=== PATIENT | male | born 1940 | race Caucasian/White ===

== ENCOUNTER → 2017-10-04 | Outpatient (CLI) | payer MEDICARE, BC ==
[~2017-10-04] MED LIST: ACTOS15 MG PO; ADULT LOW DOSE81 MG; AMARYL4 MG PO; ASPIR 8181 MG PO; COUMADIN 5 MG TA5 M1; COZAAR 25 MG TA25 M1 PO; EFFIENT10 MG PO; FLEXERIL PO; FLOMAX0.4 MG PO; FLONASE; FLONASE 0.05%50 MCG NASAL; FLONASE INH; GLUCOPHAGE500 MG PO; GLYBURIDE 5 MG T5 M1 PO; HYDROCODON-ACE1 EAC7; HYDROCODONE-AP1 EAC6 PO; IBUPROFEN 800800 M1 PO; JANUVIA50 MG PO; KEFLEX500 MG; KLOR-CON 1010 MEQ PO; LASIX 20 MG TAB20 MG PO; LEVALBUTER1.25 MG/0. INH; LEVAQUIN 500 M500 M2 PO; NORCO 5-325 TA1 EACH; NORCO 5-325 TA1 EACH PO; NOVOLIN N100 UNIT/3 SUBQ; OXYIR5 MG; PERCOCET 5-3251 EACH; PREDNISONE 10 M10 MG PO; PROTONIX40 M1 PO; REGLAN 10 MG TA10 MG PO; TRESIBA FL100 UNIT/1 SUBQ; ZOCOR PO; ZOCOR20 MG PO
== END ==
LOC: M.MRI 12:48
DX: M79.644 Pain in right finger(s) (principal)

== ENCOUNTER 2018-03-11 07:43 | Observation (INO) | payer MEDICARE, BC ==
[~2018-03-11] VITALS: Ht 180.3 cm; Wt 103.0 kg
[2018-03-11] VITALS (15 sets, daily range): BP systolic 87–1440; BP diastolic 59–83
--- NOTE | ~2018-03-11 | H ---
[address] [address] HISTORY AND PHYSICAL Name: GUERA WILLSON Room: [address] [place]#: [id number] Admission: 03/11/18 Attend Phys: Gui Howard MD Discharge: 03/12/18 Date of : 44 Report #: [id number] THIS REPORT FOR: //name// Please refer to the History and Physical performed in the physician's office. By: [id number] Records Staff NATALY /TORITO
[~2018-03-11 07:43] MED LIST changes: -ASPIR 8181 MG PO; -COZAAR 25 MG TA25 M1 PO; -EFFIENT10 MG PO; -KLOR-CON 1010 MEQ PO; -LASIX 20 MG TAB20 MG PO; -TRESIBA FL100 UNIT/1 SUBQ; -ZOCOR20 MG PO
[2018-03-11] MEDS ORDERED: ZOCOR20 MG PO (08:13)
[2018-03-11] MEDS ORDERED: TRESIBA FL100 UNIT/1 SUBQ (08:13)
[2018-03-11] MEDS ORDERED: KLOR-CON 1010 MEQ PO (08:14)
[2018-03-11] MEDS ORDERED: ASPIR 8181 MG PO (08:14)
[2018-03-11] MEDS ORDERED: LASIX 20 MG TAB20 MG PO (08:14)
[2018-03-11] MEDS ORDERED: COZAAR 25 MG TA25 M1 PO (08:14)
[2018-03-11 08:19] LABS: HEMATOCRIT 40.1 % (42.0-52.0); HEMOGLOBIN 13.4 gm/dL (14.0-18.0); MCH 26.6 pg (26.0-34.0); MCHC 33.4 g/dL (28.0-37.0); MCV 79.6 fL (80.0-100.0); MPV 8.3 fl. (7.2-11.1); RBC 5.05 mil/uL (4.50-6.00); RDW-CV 18.5 % (10.5-14.5); WBC 7.8 thou/uL (4.0-11.0)
[2018-03-11 08:29] LABS: APTT 25.2 Seconds (25.0-31.3); INR 1.1; PROTIME 10.6 Seconds (9.20-11.50)
[2018-03-11 08:42] LABS: ANION GAP 6 mmol/L (7-16); BUN 12 mg/dL (7-18); CALCIUM 9.5 mg/dL (8.5-10.1); CHLORIDE 101 mmol/L (98-107); CO2 28 mmol/L (21-32); CREATININE 0.8 mg/dL (0.6-1.3); GLUCOSE 192 mg/dL (70-99); POTASSIUM 4.3 mmol/L (3.5-5.1); SODIUM 135 mmol/L (136-145)
[2018-03-11 08:43] LABS: ALBUMIN 3.6 g/dL (3.4-5.0); ALKALINE PHOSPHATASE 58 U/L (46-116); CHOLESTEROL 90 mg/dL (<200); HDL CHOLESTEROL 43 mg/dL (>40); LDL CHOLESTEROL 35 mg/dL (<100); SGOT 14 U/L (15-37); SGPT 19 U/L (30-65); TC:HDL 2.1 Ratio (Not establshd); TOTAL BILIRUBIN 0.6 mg/dL (<0.1-1.0); TOTAL PROTEIN 7.8 g/dL (6.4-8.2); TRIGLYCERIDE 64 mg/dL (<150); VLDL 13 mg/dL (<40)
[2018-03-11 08:44] LABS: SERUM ASSESSMENT Clear
--- NOTE | 2018-03-11 09:41 | EKG ---
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
--- NOTE | 2018-03-11 14:17 | NUR ---
RECIEVED REPOST POST CATH FROM EDY DAVIS OF EXPECTED TRANSFER AT 1138-REPORTED TO HAVE RECIEVIED 2 STENTS TO RCA, CATH ACCESS FIRST THROUGH RIGHT WRIST UNSUCESSFUL WITH RADIAL BAND IN PLACE WITH 10 CC, AND THEN ACCESS THROUGH RIGHT GROIN WITH TEGADERM WITH GAUZE IN PLACE- MINIMAL DRAINAGE/BRUISE NOTED WITH NO HEMATOME TO SITES- PT ARRIVED VIA BED TO ROOM 205 AT 1215- COUNSELOR SUPERVISOR PLACED ORDERED, TRACING SR- VS 98.1 18 87/72 72 95% ON RA-POST CATH VS INITIATED WITH CATH SITE CHECKS IN PLACE- BED REST WITH IMMOBILIZATION OF RIGHT LEG IN PLACE- AIR RELEASE IN PLACE TO RADIAL BAND PER ORDERS- DIET INTIATED WITH GOOD PO INTAKE NOTED- PT A&O X4- CONTINENT OF BOWEL AND BLADDER, USING URINAL- LCTA, DIMINISHED IN BASES- OCCASSIONAL C/O DYSPENA NOTED WITH O2 AT 2L PLACED- ABDOMEN SOFT/ROUND/NON-TENDER, BS X4 QUADS- PT REPORTS TO HAVE HAD BM THIS AM- IV NOTED TO RIGHT AC INTACT, IVF INFUSSING PRESCIBED- BRUSING NOTED TO UE, OTHERWISE SKIN C/D/I- REPORTS TO HAVE DENTURES AT HOME, BUT DOES NOT WEAR THEM- GLASSES IN PLACE UPON ADMISSION- BS IN PLACE ORDERED, BS UPON ADMISSION NOTED TO BE 149- CALL LIGHT AND PERSONAL BELONGINGS WITH IN REACH- HOURLY ROUNDS IN PLACE R/T SAFETY/NEEDS- ALL NEEDS MET AT THIS TIME-TM
--- NOTE | 2018-03-11 14:41 | EKG ---
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1940 Requested By: Lucio Kern Order Number: [id number] Reading MD: Gui Howard Measurements Intervals [place] Rate: 67 P: 35 MS: 222 QRS: -7 QRSD: 98 T: 33 QT: 387 QTc: 409 Interpretive Statements Sinus rhythm Atrial premature complex Prolonged MS interval Compared to ECG 03/11/2018 09:17:47 Atrial premature complex(es) now present First degree AV block now present Electronically Signed On 03-11-2018 14:41:20 CDT by Gui Howard [email or web address] <ELECTRONICALLY SIGNED> By: Gui Howard MD, [facility] 03/11/18 1441 1410 1410 Gui Howard MD, [facility] /EPI
[2018-03-12] VITALS: BP 144/65
--- NOTE | 2018-03-12 03:16 | NUR ---
ASSUMED CARE OF PT AT 1900. PT IS ALERT AND ORIENTED. VSS. PERRLA. NO COMPLAINTS OF CHEST PAIN. STEADY GAIT. PT IS UP AD CHAIM. PT IS IN SINUS RYTHM ON THE TELEMERY. PT IS RESTING COMFORTABLY IN BED. RESPIRATIONS ARE EVEN AND NONLABORED. WILL CONTINUE TO MONITOR PT.
[2018-03-12 03:56] VITALS: BP 162/76
[2018-03-12 04:22] LABS: HEMATOCRIT 38.2 % (42.0-52.0); HEMOGLOBIN 12.9 gm/dL (14.0-18.0); MCH 26.6 pg (26.0-34.0); MCHC 33.8 g/dL (28.0-37.0); MCV 78.6 fL (80.0-100.0); MPV 8.1 fl. (7.2-11.1); RBC 4.86 mil/uL (4.50-6.00); RDW-CV 18.1 % (10.5-14.5)
[2018-03-12 04:50] LABS: ALBUMIN 3.3 g/dL (3.4-5.0); ALKALINE PHOSPHATASE 54 U/L (46-116); ANION GAP 6 mmol/L (7-16); BUN 9 mg/dL (7-18); CALCIUM 8.8 mg/dL (8.5-10.1); CHLORIDE 104 mmol/L (98-107); CO2 28 mmol/L (21-32); CREATININE 0.7 mg/dL (0.6-1.3); GLUCOSE 108 mg/dL (70-99); POTASSIUM 3.5 mmol/L (3.5-5.1); SGOT 13 U/L (15-37); SGPT 17 U/L (30-65); SODIUM 138 mmol/L (136-145); TOTAL BILIRUBIN 0.5 mg/dL (<0.1-1.0); TOTAL PROTEIN 6.7 g/dL (6.4-8.2); TROPONIN-I LEVEL <0.06 ng/mL (<0.06)
[2018-03-12 07:58] VITALS: BP 141/73
--- NOTE | 2018-03-12 09:03 | NUR ---
ASSUMED CARE OF PT THIS AM AROUND 0715- REED REPAIRER IN PLACE ORDERED, TRACING SR- UPON ASSESSMENT PT NOTED TO BE RESTING IN BED, WATCHING TV- PT A&O X4- CONTINENT OF BOWEL AND BLADDER- UP AD-CHAIM IN ROOM, STEADY GAIT NOTED- LCTA, DIMINISHED IN BASES- RESP EVEN AND UN-LABORED- REPORTS INTERMEDIATE DYSPNEA AT TIMES- VSS, O2 SAT 94% ON RA THIS AM- ABDOMEN SOFT/ROUND/NON-TENDER, BS X4 QUADS- PT REPORTS TO HAVE HAD BM THIS AM- TRACE EDEMA NOTED TO BLE- IV NOTED TO RIGHT AC INTACT AND SL- RIGHT GROIN WITH DRY DRESSING INTACT, BRUISE NOTED TO SIGHT, NO HEMATOMA NOTED- RIGHT WIRST WITH DRY DRESSING INTACT- BS MONITORED PRESCIBED, GOOD PO INTAKE NOTED THIS AM WITH BREAKFAST- PT DENIES ANY C/O PAIN/DISCOMFORT AT THIS TIME- CALL LIGHT AND PERSONAL BELONGINGS WITH IN REACH- PT MAKES NEEDS KNOWN- ALL NEEDS MET AT THIS TIME-WCTM
[2018-03-12] MEDS ORDERED: EFFIENT10 MG PO (09:57)
[2018-03-12 11:20] VITALS: BP 142/59
--- NOTE | 2018-03-12 11:34 | NUR ---
ORDERS RECIEVED PER THIS SHIFT FOR JORGE LUIS TO D/C HOME THIS SHIFT- IV TO RIGHT AC, ALONG WITH SANITATION TRUCK CLEANER D/C'D PRIOR TO D/C- D/C TEACHING/EDUCATION GIVEN TO PT PRIOR TO D/C WITH ALL QUESETIONS AND CONCERNS ADDRESSED PRIOR TO D/C- WRIST/GROIN SITE EDUCATION GIVEN TO PT PRIOR TO D/C- WRITTEN EDUCATION ALONG WITH SCRIPTS PROVIDED TO PT AT TIME OF D/C- BELONGINGS PACKED AND ACCOUNTED FOR PER PT- PT FATHER HER TO WORKERS COMPENSATION CLAIMS ADJUSTER AT TIME OF D/C- PT ESCORTED PER TECH VIA AMBULATION TO VEHICLE AT 1129- NO PROBLEMS TO NOTE AT TIME OF D/C
--- NOTE | 2018-03-13 17:29 | EKG ---
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1940 Requested By: Lucio Kern Order Number: [id number] Reading MD: Gui Howard Measurements Intervals [place] Rate: 73 P: 17 ND: 185 QRS: -13 QRSD: 97 T: 40 QT: 398 QTc: 439 Interpretive Statements Sinus rhythm Compared to ECG 03/11/2018 14:10:12 Atrial premature complex(es) no longer present First degree AV block no longer present Electronically Signed On 03-13-2018 17:29:47 CDT by Gui Howard [email or web address] <ELECTRONICALLY SIGNED> By: Gui Howard MD, [facility] 03/13/18 1729 2 2 Gui Howard MD, [facility] /EPI
--- NOTE | 2018-03-15 11:11 | CARD ---
[address] [address] CARDIAC CATH REPORT Name: GUERA WILLSON Room: [address] [place]#: [id number] Admission: 03/11/18 Attend Phys: Gui Howard MD Discharge: 03/12/18 Date of : 42 Report #: [id number] THIS REPORT FOR: //name// APPROVED REPORT Study performed: 03/11/2018 09:21:21 Patient Details The patient is a 77 year-old male Event Personnel Gui Howard Medicaid Specialist, Clarisa Boo RN RN, Devin Stoddard, Kartik Bray (Alessandra) Concha Childs John Unix Manager Procedures Performed Left heart catheterization left ventriculography selective coronary artery atrophy and percutaneous coronary intervention with stenting of the proximal and distal right coronary artery with angioplasty of a more distal portion of the right coronary artery Indication Positive stress test Risk Factors Hypercholesterolemia, Hypertension Admission/Lab Medications/Medications given during procedure Aspirin, Platelet Aff. Inhib., Angiomax bolus and infusion Procedure Narrative The patient was brought electively to the Cardiac Catheterization Laboratory and was prepped and draped in a sterile manner. The right femoral was infiltrated with 1% Lidocaine subcutaneous anesthesia. A Slender Glidesheath sheath was inserted into the right radial artery. Coronary angiography was performed using coronary diagnostic catheters. The right coronary system was accessed and visualized with a [place] 4.0 0wz7LEV 6fr catheter. The left coronary system was accessed and visualized with a [place] 4.0 6fr catheter. The left ventricle was accessed and visualized with a PC: Pig 6fr catheter. Left ventriculogram was performed in ZELAYA projection. Pre-demployment femoral angiogram was performed . Closure device was deployed with a Fr Angioseal STS 6Fr. The patient tolerated the procedure well and there were no complications associated with the [place] [address] CARDIAC CATH REPORT Name: GUERA WILLSON Room: [address]RHaseeb#: [id number] Admission: 03/11/18 Attend Phys: Gui Howard MD Discharge: 03/12/18 Date of : 44 Report #: [id number] no hematoma. RRA closed with a Long vasc band Intraoperative Conscious Sedation Sedation start time: 948 Case end Time: 113 Fentanyl 25 mcg Versed 2 mg Fluoro Time: 33.3 minutes Dose: DAP 674170 cGycm2 4895 mGy Contrast Type and Amount: Omnipaque 275 ml Coronary Angiography The patient's coronary anatomy is right dominant. Diagnostic Cath Left Main ostial 30% LAD ostial 30%, proximal smoothe 40%, distal small, diffuse 40% Diagonal 1 small normal Circumflex proximal large, normal, mid normal, distal 30% OM1 very large branching middle branch is very tortuous and has a distal 75% stenosis OM2 small normal OM3 small to medium normal L PDA tiny, normal Right Coronary mid 80% stenosis R PDA medium to large, focal 80%, Left Ventriculography The left ventricle is normal in size with normal contractility. The left ventricular ejection fraction is estimated to be 65%. Left ventricular wall motion abnormalities are not present. There is no mitral insufficiency. IVUS Intravascular Ultrasound was performed on the distal right coronary artery vessel. Fractional Flow [place] was performed on the 80 vessel. A 3 Guide Catheter was used to engage the ostium. IVUS Findings NC Trek RX 2.25 X 8 Hemodynamics The aortic pressure is 112/56 mmHg with a mean of 79 mmHg. The left ventricular pressure is 129/1 mmHg with a mean of mmHg. The left ventricular end diastolic pressure is 7 mmHg. [place] [address] CARDIAC CATH REPORT Name: GUERA WILLSON Room: [address]#: [id number] Admission: 03/11/18 Attend Phys: Gui Howard MD Discharge: 03/12/18 Date of : 44 Report #: [id number] across the aortic valve upon pullback. PCI Technique Lesion Anticoagulation was achieved with Angiomax. Patient was preloaded with Angiomax IV 16 mg per kg. Percutaneous coronary intervention was performed on the distal right coronary artery. The lesion stenosis prior to intervention was 80% with MIGUELINA 3 flow. A 6FR JCR 4 100CM Guide Catheter was used to engage the ostium. A IG: BMW 190cm Interventional Guidewire was used to cross the lesion. BALLOON DILATION A Balloon catheter Trek RX 2.25 X 12 was inserted and inflated up to 8.00atm for 15seconds. Additional Inflation: 9.00atm for 12seconds. Additional Inflation: 12.00atm for 12seconds. 14 roger for 11 sec Final angiography reveals 20 % stenosis with MIGUELINA 3 flow. PCI Technique Lesion Percutaneous coronary intervention was performed on the distal right coronary artery. The lesion stenosis prior to intervention was 80% with MIGUELINA 3 flow. BALLOON DILATION A Balloon catheter NC Trek RX 2.25 X 8 was inserted and inflated up to 16.00atm for 10seconds. Additional Inflation: 22.00atm for 12seconds. Additional Inflation: 24.00atm for 13seconds. STENT DEPLOYMENT A stent Resolute 2.25X8 was inserted and inflated up to 11.00atm for 9seconds. Additional Inflation: 14.00atm for 13seconds. Final angiography reveals 10 % stenosis with MIGUELINA 3 flow. PCI Technique Lesion 2 Percutaneous Coronary Intervention was performed on the proximal right coronary artery. The lesion stenosis prior to intervention was 80% with MIGUELINA 3 flow. Balloon Dilation A Balloon catheter Euphora SC 2.75x12 was inserted and inflated up to 14.00atm for 13seconds. Stent Deployment A stent Resolute RX 3X12 was inserted and inflated up to 10.00atm for 12seconds. Additional Inflation: 14.00atm for 9seconds. Additional [address] [address] CARDIAC CATH REPORT Name: GUERA WILLSON Room: [address] [place] M.R.#: [id number] Admission: 03/11/18 Attend Phys: Gui Howard MD Discharge: 03/12/18 Date of : 44 Report #: [id number] Inflation: 16.00atm for 11seconds. 18 roger for 9 sec Final angiography reveals 0 % stenosis with MIGUELINA 3 flow. BALLOON DILATION A Balloon catheter Trek RX 2.25 X 12 was inserted and inflated up to 10atm for 8seconds. Additional Inflation: 12atm for 14seconds. Additional Inflation: 12atm for 15seconds. 14 roger for 13 sec Conclusion #1 significant coronary artery disease characterized by the following A 30% ostial and proximal LAD narrowing B 30% proximal circumflex narrowing with 70% narrowing of subbranch of the first marginal branch C 80% mid with tandem 80% distal right coronary stenosis, this being a dominant vessel #2 normal left ventricular systolic function, estimated ejection fraction being 65% #3 normal left-sided hemodynamics study #4 successful percutaneous coronary intervention with deployment of sequential drug-eluting stents at the sites of 80% proximal and distal right coronary stenosis with 0 and 10% residual narrowing following stent deployment #5 successful percutaneous transluminal coronary angioplasty of a more distal right coronary stenosis with 20% residual narrowing and MIGUELINA-3 flow the distal vessel Recommendations Cardiac Risk Reduction Program Aggressive Medical Therapy Medications Administered Aspirin (any) Ticagrelor [address] [address] CARDIAC CATH REPORT Name: GUERA WILSLON Room: [address] [place]#: [id number] Admission: 03/11/18 Attend Phys: Gui Howard MD Discharge: 03/12/18 Date of : 42 Report #: [id number] Diagnostic Cath Approved by: Gui Howard MD Date/Time: 03/15/2018 11:10:28 <ELECTRONICALLY SIGNED> By: Lucio Kern MD, FACC 03/15/18 1111 1111 1111Joazael Kern MD, FACC /INF
--- NOTE | 2018-03-28 09:12 | D ---
[address] [address] DISCHARGE SUMMARY Name: DEMETRIS,GUERA Beth Room: [address] [place]#: [id number] Admission: 03/11/18 Attend Phys: Gui Howard MD Discharge: 03/12/18 Date of : 42 Report #: [id number] THIS REPORT FOR: //name// CC: Chantal Howard DATE OF SERVICE: 03/12/2018 1. FINAL DIAGNOSES: 2. 1. Unstable angina. 3. 2. Status post percutaneous coronary intervention, 2-vessel. 4. 3. Normal left ventricular function. 5. 4. Hypertension. 6. 5. Hyperlipidemia. HOSPITAL SUMMARY: The patient presented as an outpatient cardiac catheterization after having an abnormal stress test with exertional angina. His cardiac catheterization, which was initially performed via the right radial artery demonstrated 2-vessel coronary artery disease. Because of the locations of his severe stenosis, he was transitioned to a right femoral approach. His procedure went well. Three drug-eluting stents were placed. Post procedurally, he was ambulating without complaints of chest pain or shortness of breath. His post-procedural lab was unremarkable, his renal function was normal on discharge. PCI was performed to his right coronary artery, there was a distal circumflex lesion, which was left for medical therapy as it was in a distal marginal and in a very tortuous vessel, not suitable for PCI. This will be managed medically. He will follow up in our office in 4 weeks. DISCHARGE MEDICATIONS: Include Effient 10 mg daily, aspirin, simvastatin 20 mg daily, and losartan 25 mg daily. <ELECTRONICALLY SIGNED> By: Gui Howard MD, FACC 03/28/18911 6 1625Gui Howard MD, FACC /nt
== END 2018-03-12 11:30 | disposition home or self-care (01) ==
LOC: M.CL 07:43 → M.2W 12:03 → M.TBA-CV 12:03 → M.2W 12:41
PROVIDERS: Internal Medicine; ADMIT Internal Medicine Cardiovascular Disease
DX: I25.110 Atherosclerotic heart disease of native coronary artery with unstable angina pectoris (principal); I11.0 Hypertensive heart disease with heart failure; I50.21 Acute systolic (congestive) heart failure; E78.00 Pure hypercholesterolemia, unspecified; E78.5 Hyperlipidemia, unspecified; R94.39 Abnormal result of other cardiovascular function study; E11.9 Type 2 diabetes mellitus without complications; J44.9 Chronic obstructive pulmonary disease, unspecified; Z82.49 Family history of ischemic heart disease and other diseases of the circulatory system; Z87.891 Personal history of nicotine dependence

== ENCOUNTER → 2018-10-28 | Outpatient (CLI) | payer MEDICARE, BC ==
[~2018-10-28] MED LIST changes: +ASPIR 8181 MG PO; +COZAAR 25 MG TA25 M1 PO; +EFFIENT10 MG PO; +KLOR-CON 1010 MEQ PO; +LASIX 20 MG TAB20 MG PO; +TRESIBA FL100 UNIT/1 SUBQ; +ZOCOR20 MG PO
[2018-10-28 12:51] LABS: ALBUMIN 3.2 g/dL (3.4-5.0); CALCIUM 9.9 mg/dL (8.5-10.1); CK-MB MASS 1.1 ng/mL (<0.5-3.6); POTASSIUM 4.5 mmol/L (3.5-5.1); TOTAL BILIRUBIN 0.2 mg/dL (<0.1-1.0); TOTAL PROTEIN 7.6 g/dL (6.4-8.2)
== END ==
LOC: M.LAB 12:06
PROVIDERS: Registered Nurse
DX: I11.0 Hypertensive heart disease with heart failure (principal); I50.32 Chronic diastolic (congestive) heart failure; I25.10 Atherosclerotic heart disease of native coronary artery without angina pectoris

== ENCOUNTER → 2018-11-11 | Outpatient (CLI) | payer MEDICARE, BC | LOC: M.RAD 12:13 | DX: J98.4 Other disorders of lung (principal); I11.0 Hypertensive heart disease with heart failure; I50.32 Chronic diastolic (congestive) heart failure; E11.9 Type 2 diabetes mellitus without complications; I25.10 Atherosclerotic heart disease of native coronary artery without angina pectoris; J44.9 Chronic obstructive pulmonary disease, unspecified; Z88.0 Allergy status to penicillin; Z88.8 Allergy status to other drugs, medicaments and biological substances; Z79.4 Long term (current) use of insulin ==

== ENCOUNTER 2018-11-28 08:59 | Observation (INO) | payer MEDICARE, BC ==
[2018-11-28] VITALS (14 sets, daily range): BP systolic 140–164; BP diastolic 61–77
[~2018-11-28] VITALS: Ht 180.3 cm; Wt 108.0 kg
--- NOTE | ~2018-11-28 | D ---
[address] [address] DISCHARGE SUMMARY Name: GUERA WILLSON Room: [address] [place]#: [id number] Admission: 11/28/18 Attend Phys: Lucio Kern MD, Discharge: 11/29/18 Date of : 42 Report #: [id number] THIS REPORT FOR: //name// CC: Lucio Aguayo DATE OF SERVICE: 11/29/2018 FINAL DISCHARGE DIAGNOSES: 1. Unstable angina. 2. Coronary artery disease. 3. Status post percutaneous coronary intervention to the mid left anterior descending. 4. Hypertension. 5. Hyperlipidemia. 6. Type 2 diabetes. 7. Weight excess. PROCEDURES: 11/28/2018 -- left heart catheterization, left ventriculography, selective coronary arteriography and percutaneous coronary intervention to the mid LAD. The patient is a very pleasant 78-year-old male followed by Dr. Howard. Recently, he described a pattern of angina compatible with clinical instability. He has underlying hypertension, hyperlipidemia, diabetes and weight excess. In this context, I performed cardiac catheterization on 11/28/2018. That study revealed 75-80% calcified mid LAD stenosis. He had 50% distal right coronary narrowing with no significant circumflex stenoses. Given this data, I performed arthrotomy/atherectomy with stenting of the mid LAD, deploying one 2.5 x 12 mm Xience Thea drug-eluting stent, post-dilated to 2.75 mm with 10% residual narrowing and MIGUELINA 3 flow to the distal vessel. Troponin matilda inconsequentially to 0.12. Laboratory on 11/29/2018 revealed a sodium 137, potassium 3.8, BUN 13, creatinine 0.9, glucose 144. Hemoglobin 12.4, white blood cell count 6600 with 167,000 platelets. Cholesterol 98, HDL 38, LDL 48, triglycerides 62. The patient ambulated in the hallways without difficulty with good hemostasis at the right femoral site of catheterization. He was discharged to home on the following medications: Aspirin 81 mg daily, furosemide 20 mg daily, glimepiride 4 mg b.i.d., insulin degludec 34 units subcutaneously at bedtime, losartan 25 mg daily, metformin 1000 mg b.i.d. to be resumed on 12/01/2018, potassium chloride 10 mEq daily, prasugrel or Effient 10 mg daily with a 60 mg preprocedural dose given, simvastatin 20 mg at bedtime and tamsulosin 0.4 mg daily as well as acetaminophen as needed and p.r.n. sublingual [place] [address] DISCHARGE SUMMARY Name: GUERA WILLSON Room: [address] [place] M.RHaseeb#: [id number] Admission: 11/28/18 Attend Phys: Lucio Kern MD, Discharge: 11/29/18 Date of : 44 Report #: [id number] The patient will be seen in followup by Qing Darby NP, on 12/19/[address] Howard on 01/09/2019. Thus, the patient is discharged to home in stable condition on the aforementioned medications with followup as iterated above. By: 0947 Tabitha Kern MD, FACC /nt
[2018-11-28 09:46] LABS: HEMATOCRIT 39.4 % (42.0-52.0); HEMOGLOBIN 13.1 gm/dL (14.0-18.0); MCH 25.1 pg (26.0-34.0); MCHC 33.1 g/dL (28.0-37.0); MCV 75.8 fL (80.0-100.0); MPV 8.5 fl. (7.2-11.1); RBC 5.2 mil/uL (4.50-6.00); RDW-CV 18.8 % (10.5-14.5); WBC 5.8 thou/uL (4.0-11.0)
[2018-11-28 09:56] LABS: APTT 25.7 Seconds (25.0-31.3); PROTIME 10.5 Seconds (9.20-11.50)
[2018-11-28 10:28] LABS: ANION GAP 9 mmol/L (7-16); BUN 15 mg/dL (7-18); CALCIUM 9.6 mg/dL (8.5-10.1); CHLORIDE 98 mmol/L (98-107); CHOLESTEROL 98 mg/dL (<200); CO2 25 mmol/L (21-32); GLUCOSE 309 mg/dL (70-99); HDL CHOLESTEROL 38 mg/dL (>40); LDL CHOLESTEROL 48 mg/dL (<100); POTASSIUM 4.3 mmol/L (3.5-5.1); SODIUM 132 mmol/L (136-145); TC:HDL 2.6 Ratio (Not establshd); TRIGLYCERIDE 62 mg/dL (<150); VLDL 12 mg/dL (<40)
[2018-11-28 10:29] LABS: SERUM ASSESSMENT Clear
--- NOTE | 2018-11-28 16:37 | EKG ---
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
--- NOTE | 2018-11-28 16:37 | EKG ---
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1940 Requested By: Lucio Kern Order Number: [id number] Reading MD: Gui Howard Measurements Intervals [place] Rate: 73 P: 33 TN: 171 QRS: -15 QRSD: 98 T: 46 QT: 433 QTc: 478 Interpretive Statements Sinus rhythm Atrial premature complex Borderline left axis deviation Borderline prolonged QT interval Compared to ECG 03/12/2018 08:23:22 Atrial premature complex(es) now present Electronically Signed On 11-28-2018 16:37:46 CDT by Gui Howard [email or web address] <ELECTRONICALLY SIGNED> By: Gui Howard MD, [facility] 11/28/18 1637 1347 1347 Gui Howard MD, [facility] /EPI
--- NOTE | 2018-11-28 16:45 | NUR ---
PATIENT TO UNIT VIA BED AND ENTERPRISE APPLICATIONS MANAGER STAFF X2. REC'D REPORT AND ASSESSED GROIN SITE WITH ENTERPRISE APPLICATIONS MANAGER RN. SITE IS COVERED WITH GAUZE/TEGADERM AND HAS SMALL AMOUNT OF SEROUS DRAINAGE ON GAUZE. ASSESSMENT COMPLETE, VS OBTAINED. RADIAL AND PEDAL PULSES ASSESSED. PATIENT IS WITHOUT ANY SENSATION CHANGES IN ANY EXTREMITY. PATIENT IS LAYING FLAT AT 30 DEGREE INCLINE OF ENTIRE BED. CALL LIGHT IN REACH. A&OX4, ABLE TO COMMUNICATE NEEDS TO STAFF. FREQUENT ASSESSMENT OF VS, GROIN SITE AND PULSES. HOURLY ROUNDING FOR SAFETY AND PATIENT NEEDS.
--- NOTE | 2018-11-28 17:55 | NUR ---
PATIENT STATES THAT HE WILL NOT BE TAKING ANY MEDICATIONS HERE D/T BEING OBSERVATION STATUS AND HAVING TO PAY MORE FOR HIS MEDICATIONS. EDUCATION GIVEN TO PATIENT VIA DISCUSSION ABOUT BLOOD PRESSURE CONTROL AND BLOOD GLUCOSE CONTROL ENABLING OPTIMAL HEALING ENVIRONMENT WITHIN THE BODY. EDUCATION PATIENT THAT FAMILY CAN BRING HIS OWN HOME MEDICATIONS INTO THE HOSPITAL, AND WITH PHARMACY VERIFICATION, HE WILL BE ABLE TO USE THOSE MEDICATIONS. PATIENT AGREEABLE TO THIS ARRANGEMENT. PATIENT STATES, "I CAN'T AFFORD TO BE IN THE DONUT HOLE. THAT WILL COST ME $100 AND I CANNOT AFFORD THAT."
[2018-11-29] VITALS: BP 135/65
--- NOTE | 2018-11-29 03:34 | NUR ---
RECIEVED REPORT AND ASSUMED CARE AT 1900. 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 SYSTOLIC BP ELEVATED, OTHER THAN THAT VITAL SIGNS STABLE. PT IS UP ADLIB. PT HAS PAIN AND PRN PAIN MEDS GIVEN ORDERED. ASSESSMENT COMPLETED DISCUSSED PLAN OF CARE AND PT UNDERSTANDS. PTS BROUGHT IN PTS MEDS BECAUSE PT DID NOT WANT TO BE CHARGED FOR MEDS WHILE HE WAS HERE D/T HIS INSURANCE AND HE STATED HE JUST REFILLED HIS MEDS. THIS NURSE TOOK PTS MEDS DOWN TO PHARMACY TO GET VERIFIED AND STILL WAITING ON MEDS TO COME BACK FROM PHARMACY. BED LOCKED AND CALL LIGHT WITHIN REACH. FALL PRECAUTIONS IN PLACE. HOURLY ROUNDING DONE AND ALL NEEDS MET. NURSING WILL CONTINUE TO MONITOR.
[2018-11-29 04:00] VITALS: BP 120/58
[2018-11-29 05:44] LABS: HEMATOCRIT 37.4 % (42.0-52.0); HEMOGLOBIN 12.4 gm/dL (14.0-18.0); MCH 24.9 pg (26.0-34.0); MCHC 33.1 g/dL (28.0-37.0); MCV 75.2 fL (80.0-100.0); MPV 8.8 fl. (7.2-11.1); RBC 4.97 mil/uL (4.50-6.00); RDW-CV 18.9 % (10.5-14.5); WBC 6.6 thou/uL (4.0-11.0)
[2018-11-29 06:04] LABS: CREATININE 0.9 mg/dL (0.6-1.3); POTASSIUM 3.8 mmol/L (3.5-5.1); TOTAL BILIRUBIN 0.4 mg/dL (<0.1-1.0); TROPONIN-I LEVEL 0.12 ng/mL (<0.06)
[2018-11-29 08:00] VITALS: BP 145/63
[2018-11-29 09:26] VITALS: BP 120/58
--- NOTE | 2018-11-29 10:26 | CARD ---
[address] [address] CARDIAC CATH REPORT Name: GUERA WILLSON Room: [address] Consuelo [place]#: [id number] Admission: 11/28/18 Attend Phys: Lucio Kern MD, Discharge: Date of : 44 Report #: [id number] THIS REPORT FOR: //name// APPROVED REPORT Study performed: 11/28/2018 10:54:34 Patient Details The patient is a 78 year-old male Event Personnel Lucio Kern Director Life, Nikki Bravo Closing Coordinator, Kartik Bray (R) Ryan Childs Brad ELEMENTARY READING TUTOR Monitor Procedures Performed ISA Place w/wo Plasty Single LAD [id number] ; atherotomy/atherectomy with stenting of the mid LAD, Selective Right and Left Coronary Angiography left heart catheterization and left ventriculography Indication Unstable angina Risk Factors Hypercholesterolemia, Hypertension, Diabetes Admission/Lab Medications/Medications given during procedure Aspirin, Platelet Aff. Inhib., Angiomax bolus and infusion Procedure Narrative The patient was brought electively to the Cardiac Catheterization Laboratory and was prepped and draped in a sterile manner. The right femoral was infiltrated with 2% Lidocaine subcutaneous anesthesia. A [place] 6 FR sheath was inserted into the . Coronary angiography was performed using coronary diagnostic catheters. The right coronary system was accessed and visualized with a JR4 5fr catheter. The left coronary system was accessed and visualized with a JL 5 5fr catheter. The left ventricle was accessed and visualized with a PC: Angled Pig 5fr catheter. Left ventricular/Aortic Valve gradient assessed via catheter pullback. Pre-demployment femoral angiogram was performed . Closure device was deployed with a 6 Fr MynxGrip 6/7F. The patient tolerated the procedure well and there were no complications associated with the procedure. There was no hematoma. Intraoperative [place] [address] CARDIAC CATH REPORT Name: DEMETRISGUERA MOON Room: [address] M.R.#: [id number] Admission: 11/28/18 Attend Phys: Lucio Kern MD, Discharge: Date of : 44 Report #: [id number] Fentanyl 2575 mcg Dose: 3408 mGy Contrast Type and Amount: Visipaque 550 ml Diagnostic Cath Left Main 0% narrowing LAD 80% calcified mid LAD stenosis Circumflex Dominant vessel with 40 percent narrowing of the first marginal branch in the proximal portion Right Coronary Codominant vessel with widely patent proximal and mid vessel stents with 50% distal right coronary in-stent narrowing Left Ventriculography The left ventricle is normal in size with normal contractility. The left ventricular ejection fraction is estimated to be 60%. Left ventricular wall motion abnormalities are not present. There is no mitral insufficiency. Hemodynamics The aortic pressure is 156/56 mmHg with a mean of 95 mmHg. The left ventricular pressure is 165/2 mmHg with a mean of mmHg. The left ventricular end diastolic pressure is 10 mmHg. There was no gradient across the aortic valve upon pullback. PCI Technique Lesion Anticoagulation was achieved with Angiomax. Patient was preloaded with Angiomax Drip IV 38.18 ml per hrAngiomax IV 16.5 ml. Percutaneous coronary intervention was performed on the mid left anterior descending artery segment. The lesion stenosis prior to intervention was 80% with MIGUELINA 3 flow. A 6FR XB 3.5 100CM Guide Catheter was used to engage the ostium. A IG: ProwaterFlex 180CM Interventional Guidewire was used to cross the lesion. BALLOON DILATION A Balloon catheter AngioSculpt PTCA 2.5 X 10mm was inserted and inflated up to 18.00atm for 9seconds. STENT DEPLOYMENT A stent Xience Thea 2.5X12mm was inserted and inflated up to 18.00atm for 5seconds. POST STENT DEPLOYMENT BALLOON DILATION A Balloon catheter NC Trek RX 2.75 X 12 was inserted and inflated up to 22.00atm for 32seconds. [place] [address] CARDIAC CATH REPORT Name: DEMETRISGUERA ANDRESPriya Room: [address] M.R.#: [id number] Admission: 11/28/18 Attend Phys: Lucio Kern MD, Discharge: Date of : 44 Report #: [id number] Final angiography reveals 10 % stenosis with MIGUELINA 3 flow. Conclusion #1 significant coronary artery disease characterized by the following: A 80% calcified mid LAD stenosis B prominent codominant circumflex with 40% proximal first marginal narrowing C codominant right coronary artery with widely patent proximal and mid vessel stents with 50% distal right coronary in-stent narrowing #2 normal left ventricular systolic function, estimate ejection fraction being 60% #3 mild systemic systolic hypertension with normal left ventricular end-diastolic pressure at rest #4 successful atherotomy/atherectomy with stenting of the mid LAD with 10% residual narrowing and MIGUELINA-3 flow to the distal vessel Recommendations Cardiac Risk Reduction Program Aggressive Medical Therapy Medications Administered Aspirin (any) Prasugrel Diagnostic Cath Approved by: Lucio Kern MD Date/Time: 11/29/2018 10:24:36 <ELECTRONICALLY SIGNED> By: Lucio Kern MD, [facility] 11/29/18 1025 1025 1025Lucio Kern MD, FACC /INF
[2018-11-29 11:11] VITALS: BP 120/58
[2018-11-29 12:44] VITALS: BP 146/66
--- NOTE | 2018-11-29 13:35 | NUR ---
A&O X4, UP AD CHAIM, VSS, REGULATORY ASSISTANT TRACING SINUS RHYTHM, RA. CATH SITE TO RIGHT GROIN SOFT TO TOUCH, DRESSING CLEAN, DRY, AND INTACT, DENIES ANY PAIN TO SITE. HOURLY ROUNDING COMPLETED. PT DISCHARGED HOME, LEFT UNIT AT APPROX 1325 VIA WHEELCHAIR WITH NURSING STAFF AND FRIEND AT SIDE. EDUCATED ON ALL DISCHARGE INSTRUCTIONS INCLUDING MEDICATIONS AND FOLLOW UP APPTS. IV AND REGULATORY ASSISTANT REMOVED
--- NOTE | 2018-11-30 11:38 | EKG ---
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 : 1940 Requested By: Lucio Kern Order Number: [id number] Reading MD: Gui Howard Measurements Intervals [place] Rate: 63 P: 0 [place]: 129 QRS: 3 QRSD: 101 T: 55 QT: 477 QTc: 489 Interpretive Statements Sinus rhythm Atrial premature complex Borderline T wave abnormalities Borderline prolonged QT interval Compared to ECG 11/28/2018 13:47:04 T-wave abnormality now present Electronically Signed On 11-30-2018 11:38:04 CDT by Gui Howard [email or web address] <ELECTRONICALLY SIGNED> By: Gui Howard MD, [facility] 11/30/18 1138 0305 0305 Gui Howard MD, [facility] /EPI
== END 2018-11-29 13:25 | disposition home or self-care (01) ==
LOC: M.CL 08:59 → M.TBA-CV 13:24 → M.2W 16:24
PROVIDERS: ADMIT Internal Medicine
DX: I25.110 Atherosclerotic heart disease of native coronary artery with unstable angina pectoris (principal); I10 Essential (primary) hypertension; E78.5 Hyperlipidemia, unspecified; E11.9 Type 2 diabetes mellitus without complications; R63.5 Abnormal weight gain; E78.00 Pure hypercholesterolemia, unspecified; Z98.61 Coronary angioplasty status

== ENCOUNTER → 2020-01-06 | Outpatient (CLI) | payer MEDICARE, BC ==
[~2020-01-06] MED LIST changes: +CLINDAMYCIN PO; +FARXIGA5 MG PO; +LORCET 5-325 M1 EACH PO; +[UNRECOGNIZED DRUG - OTHER] SUBQ
[2020-01-06 10:09] LABS: HEMATOCRIT 37.3 % (42.0-52.0); HEMOGLOBIN 12.5 gm/dL (14.0-18.0); MCH 26.2 pg (26.0-34.0); MCHC 33.5 g/dL (28.0-37.0); MPV 7.9 fl. (7.2-11.1); RBC 4.78 mil/uL (4.50-6.00); RDW-CV 19.4 % (10.5-14.5); WBC 4.8 thou/uL (4.0-11.0)
== END ==
LOC: M.LAB 09:48
PROVIDERS: ATTEND Orthopaedic Surgery
DX: L03.116 Cellulitis of left lower limb (principal)

== ENCOUNTER → 2020-01-15 | Outpatient (CLI) | payer MEDICARE, BC | LOC: M.MRI 07:30 | PROVIDERS: ATTEND Orthopaedic Surgery | DX: S93.492A Sprain of other ligament of left ankle, initial encounter (principal); S93.422A Sprain of deltoid ligament of left ankle, initial encounter; M19.072 Primary osteoarthritis, left ankle and foot; M77.32 Calcaneal spur, left foot; X58.XXXA Exposure to other specified factors, initial encounter; Y93.89 Activity, other specified; Y92.89 Other specified places as the place of occurrence of the external cause; Y99.8 Other external cause status ==

== ENCOUNTER 2020-01-18 16:09 | Inpatient (IN) | payer MEDICARE, BC ==
[~2020-01-18] VITALS: Ht 182.9 cm; Wt 105.2 kg
[~2020-01-18 16:09] MED LIST changes: -CLINDAMYCIN PO; -FARXIGA5 MG PO; -LORCET 5-325 M1 EACH PO; -[UNRECOGNIZED DRUG - OTHER] SUBQ
[2020-01-18 16:15] VITALS: BP 148/88
[2020-01-18] MEDS ORDERED: FARXIGA5 MG PO ×2 (16:20→22:12)
[2020-01-18 18:55] LABS: ABSOLUTE BASOPHILS 0.1 thou/uL (0.0-0.2); ABSOLUTE EOSINOPHILS 0.1 thou/uL (0.0-0.7); ABSOLUTE LYMPHOCYTES 1.4 thou/uL (0.8-5.3); ABSOLUTE MONOCYTES 0.5 thou/uL (0.0-1.2); ABSOLUTE NEUTROPHILS 5.3 thou/uL (1.6-8.1); BASOPHILS 0.9 %; EOSINOPHILS 1.6 %; HEMATOCRIT 39.8 % (42.0-52.0); HEMOGLOBIN 13.4 gm/dL (14.0-18.0); LYMPHOCYTES 18.7 %; MCH 25.9 pg (26.0-34.0); MCHC 33.7 g/dL (28.0-37.0); MCV 76.9 fL (80.0-100.0); MONOCYTES 6.4 %; NUCLEATED RBCS 0 /100WBC; PLATELET COUNT* 182 thou/uL (150-400); POLYS 72.4 %; RBC 5.18 mil/uL (4.50-6.00); RDW-CV 18.7 % (10.5-14.5); WBC 7.3 thou/uL (4.0-11.0)
[2020-01-18 19:04] LABS: CREATININE 1.1 mg/dL (0.6-1.3); POTASSIUM 4.3 mmol/L (3.5-5.1)
[2020-01-18 19:09] LABS: ALBUMIN 3.9 g/dL (3.4-5.0); TOTAL BILIRUBIN 0.4 mg/dL (<0.1-1.0); TOTAL PROTEIN 8.3 g/dL (6.4-8.2)
[2020-01-18 19:55] LABS: URINE BILIRUBIN NEGATIVE (Negative); URINE BLOOD NEGATIVE (Negative); URINE CLARITY CLEAR; URINE COLOR YELLOW; URINE GLUCOSE-RANDOM 3+ (Negative); URINE KETONES NEGATIVE (Negative); URINE LEUKOCYTES-REFLEX NEGATIVE (Negative); URINE NITRITE-REFLEX NEGATIVE (Negative); URINE PROTEIN NEGATIVE (Negative); URINE UROBILINOGEN 0.2 E.U./dl (0.2-1.0)
[2020-01-18 20:00] VITALS: BP 130/78
[2020-01-18 20:40] VITALS: BP 150/64
[2020-01-18] MEDS ORDERED: [UNRECOGNIZED DRUG - OTHER] SUBQ (20:43)
[2020-01-19 07:49] VITALS: BP 142/62; BP 150/64
--- NOTE | 2020-01-19 09:08 | EKG ---
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[place] : 1940 Requested By: Armen Lovell Order Number: [id number] MD: Santy Shelton Measurements Intervals [place] Rate: 69 P: 11 [place]: 219 QRS: 12 QRSD: 96 T: 41 QT: 399 QTc: 428 Interpretive Statements Sinus rhythm Borderline prolonged LA interval Abnormal R-wave progression, early transition Compared to ECG 11/29/2018 03:05:30 Atrial premature complex(es) no longer present T-wave abnormality no longer present Electronically Signed On 01-19-2020 9:07:43 CDT by Santy Shelton [email or web address] <ELECTRONICALLY SIGNED> By: Santy Shelton MD, FACC 01/19/20906 58 58 Santy Shelton MD, FACC /EPI
[2020-01-19 16:35] VITALS: BP 153/61
[2020-01-19 19:45] VITALS: BP 142/49
[2020-01-19 23:31] VITALS: BP 136/60
[2020-01-20 04:00] VITALS: BP 132/62
[2020-01-20 04:39] LABS: HEMOGLOBIN 12.3 gm/dL (14.0-18.0); MCH 25.7 pg (26.0-34.0); MCHC 33.2 g/dL (28.0-37.0); MCV 77.4 fL (80.0-100.0); MPV 8.3 fl. (7.2-11.1); RBC 4.77 mil/uL (4.50-6.00); RDW-CV 18.8 % (10.5-14.5); WBC 6.2 thou/uL (4.0-11.0)
[2020-01-20 04:55] LABS: ALBUMIN 3.1 g/dL (3.4-5.0); CALCIUM 8.7 mg/dL (8.5-10.1); MAGNESIUM 1.9 mg/dL (1.8-2.4)
--- NOTE | 2020-01-20 06:56 | OP ---
[address] [address] OPERATIVE REPORT Name: GUERA WILLSON Room: [address] IN M.R.#: [id number] Admission: 01/18/20 Attend Phys: Murray Woodall Discharge: Date of : 44 Report #: [id number] THIS REPORT FOR: //name// cc: Rishabh Aguayo Vincent R. DO ~ THIS REPORT FOR: //name// CC: Murray Mar DATE OF SERVICE: 01/19/2020 PREOPERATIVE DIAGNOSIS: Cellulitis of the left lower extremity with a previous internal fixation to an ankle fracture same side. POSTOPERATIVE DIAGNOSIS: Cellulitis of the left lower extremity with a previous internal fixation to an ankle fracture same side. SURGERY PERFORMED: 1. Left ankle removal of previous medial hardware. 2. Tissue and intraoperative subcutaneous cultures of the left surgical site, removal of the hardware with a bone biopsy to rule out osteomyelitis. SURGEON: Farhad Ramirez DO PSYCHOLOGY TECH: Dr. Angel. ANESTHESIA: General anesthetic. ANTIBIOTICS: The patient did receive clindamycin, once cultures were obtained, IV piggyback performed 600 mg. COMPLICATIONS: He has no other complications. DRAINS: None. GROSS FINDINGS: Prior to surgery, this gentleman had failed a treatment of prior outpatient antibiotics by his primary care physician for this left ankle, lower leg cellulitis. He presented through the Emergency Room on 01/18/2020 with increasing pain, erythema to the lower leg region as well as no progression or improvement with his findings post-treatment. The patient did have an MRI of this ankle. No osteo was necessarily seen, but his pain worsens, so he is elected for surgery. Intraoperative findings correlated with a thickened murky fluid in the subcutaneous plane on the most proximal aspect of his lower leg incision area and the deep tissue subcutaneous layer above the fascia of the lower extremity was very fibrotic in nature and hype[place] [address] OPERATIVE REPORT Name: GUERA WILLSON Room: [address] IN M.R.#: [id number] Admission: 01/18/20 Attend Phys: Murray Woodall Discharge: Date of : 42 Report #: [id number] Around the screws, 4 medial screws were all removed. There was no evidence of any purulence in the remaining aspect of this incision and all the bone was very firm. Course of bone biopsy was performed to rule out osteo. ESTIMATED BLOOD LOSS: 5 mL and no complications. SURGERY IN DETAIL: The patient was taken to the operating room and placed on table, given a general anesthetic and a well-padded tourniquet placed high on his lower extremity on the left side. He underwent a chlorhexidine prep and sterile draping for left lower extremity surgery. Timeout was called and verified by everyone in the room for the lower leg. Surgery began just anterior to the previous cicatrix that he has from his past surgery. A 20 blade scalpel was used to make initial incision in a curvilinear fashion extending to the painful proximal area where most of his discomfort was with a incision through that skin and just into the subcutaneous planes. Upon entering the proximal aspect of this surgical site, murky fluid was isolated. It was definitely cultured x 2. We did elevate the periosteum off the bone and the distal tibia to expose all 4 screws. They were all removed, again with no purulence in those areas. The patient did have a bone biopsy obtained as well. Proximally, we did continue to dissect off that subcutaneous layer from the fascia. It was definitely hyperplasia type tissue, so this was cultured as well to rule out infection. At this point in time, once all of this had been accomplished, we did copiously irrigate this left surgical site with normal saline. Tourniquet was released. Hemostasis easily maintained. There were no other gross findings. Subcutaneous tissues were closed with 2-0 Monocryl followed with skin closed with [id number]-vq-[id number] sutures of 2-0 nylon. Xeroform, 4 x 4s, Kerlix, soft roll, Edmond wrap dressing applied, transferred off the table, taken to recovery in stable condition. I attest I was present for all critical aspects of surgery. Needle, instrument, sponge counts correct. <ELECTRONICALLY SIGNED> By: Farhad Ramirez DO 01/20/20 0656 1229 1255Cmichi Ramirez DO /nt
[2020-01-20 09:32] VITALS: BP 159/59
[2020-01-20 12:00] VITALS: BP 125/48
[2020-01-20 12:52] LABS: % SATURATION 15 % (20-39); IRON 37 ug/dL (50-175)
[2020-01-20 16:00] VITALS: BP 159/67
[2020-01-21] VITALS: BP 131/53
[2020-01-21] MEDS ORDERED: CLINDAMYCIN PO (10:07)
[2020-01-21] MEDS ORDERED: LORCET 5-325 M1 EACH PO (10:08)
[2020-01-21 10:34] VITALS: BP 131/53
--- NOTE | 2020-01-25 13:07 | PATH ---
[address] [address] PATHOLOGY RPT PROCEDURE Name: GUERA WILLSON Room: [address] IN M.R.#: [id number] Admission: 01/18/20 Date of : 44 Discharge: 01/21/20 Report #: [id number] Path Case #: [id number] LCA Accession Number: [id number] . 01 Material submitted: . ankle - LEFT ANKLE BONE BIOPSY. Modifiers: left . 01 Clinician provided ICD-10: T84.59XA . 01 Clinical history: . Rule out osteomyelitis . 02 Diagnosis: Left ankle bone biopsy: - Benign and viable cancellous bone and scant stroma with lymphoid aggregates, without definite osteomyelitis identified. See comment. (KANG:pit 01/25/2020) QTP 01/25/2020 1204 Local . 02 Comment: Preliminary findings discussed with Dr. Ramirez on late afternoon of 01/21/2020. . 02 Electronically signed: . Norris Ferris MD, Pathologist NPI- [id number] . 01 Gross description: . The specimen is received in formalin, labeled "Guera Willson, left ankle bone biopsy" and consists of multiple fragments of whelan brown bone measuring 1.0 x 0.6 x 0.3 cm in aggregate which are entirely submitted in A1 following decalcification. ([facility]; 01/19/2020) JFQ/JFQ 01/19/2020 2144 Local . 02 Pathologist provided ICD-10: T84.59XA . 02 CPT . 994812, [id number] Specimen Comment: A courtesy copy of this report has been sent to [phone] Specimen Comment: [phone], Specimen Comment: Report sent to ,DR DANIELS / DR SUTHERLAND Performed at: [address], [place] [id number] [place] [address] PATHOLOGY RPT PROCEDURE Name: GUERA WILLSON ANDRESPriya Room: [address] IN M.R.#: [id number] Admission: 01/18/20 Date of : 44 Discharge: 01/21/20 Report #: [id number] Path Case #: [id number] MD Fabiano Sosa MD Phone: [phone] Performed at: 02 [facility] [address], [place], [place] [id number] MD Norris Ferris MD Phone: [phone]
== END 2020-01-21 16:20 | disposition home or self-care (01) | DRG 478 ==
LOC: M.ERS 16:09 → M.ORTHSURG 17:59 → M.TBA-ER 17:59 → M.ORTHSURG 20:27
PROVIDERS: Emergency Medicine; ADMIT Family Medicine; ATTEND Family Medicine
PROC: 5A09357 Assistance with Respiratory Ventilation, Less than 24 Consecutive Hours, Continuous Positive Airway Pressure (ICD-10-PCS; principal; 2020-01-19)
PROC: 0QBH0ZX Excision of Left Tibia, Open Approach, Diagnostic (ICD-10-PCS; principal; 2020-01-19)
PROC: 0SPG0JZ Removal of Synthetic Substitute from Left Ankle Joint, Open Approach (ICD-10-PCS; principal; 2020-01-19)
PROC: 5A09357 Assistance with Respiratory Ventilation, Less than 24 Consecutive Hours, Continuous Positive Airway Pressure (ICD-10-PCS; 2020-01-20)
DX: T84.7XXA Infection and inflammatory reaction due to other internal orthopedic prosthetic devices, implants and grafts, initial encounter (principal); L03.116 Cellulitis of left lower limb; E44.1 Mild protein-calorie malnutrition; E11.9 Type 2 diabetes mellitus without complications; J43.9 Emphysema, unspecified; J45.909 Unspecified asthma, uncomplicated; Z96.642 Presence of left artificial hip joint; I10 Essential (primary) hypertension; M19.032 Primary osteoarthritis, left wrist; D50.9 Iron deficiency anemia, unspecified; M19.031 Primary osteoarthritis, right wrist; E78.5 Hyperlipidemia, unspecified; N40.0 Benign prostatic hyperplasia without lower urinary tract symptoms; Z68.31 Body mass index [BMI] 31.0-31.9, adult; Z98.42 Cataract extraction status, left eye; Z98.41 Cataract extraction status, right eye; Z95.5 Presence of coronary angioplasty implant and graft; Z88.0 Allergy status to penicillin; Z82.49 Family history of ischemic heart disease and other diseases of the circulatory system; Z87.891 Personal history of nicotine dependence; Z79.4 Long term (current) use of insulin; Y83.8 Other surgical procedures as the cause of abnormal reaction of the patient, or of later complication, without mention of misadventure at the time of the procedure; Y92.89 Other specified places as the place of occurrence of the external cause; Z03.818 Encounter for observation for suspected exposure to other biological agents ruled out

== ENCOUNTER 2020-02-15 17:50 | Inpatient (IN) | payer MEDICARE, BC ==
[~2020-02-15] VITALS: Ht 180.3 cm; Wt 105.7 kg
[~2020-02-15 17:50] MED LIST changes: +CLINDAMYCIN PO; +FARXIGA5 MG PO; +LORCET 5-325 M1 EACH PO; +[UNRECOGNIZED DRUG - OTHER] SUBQ
[2020-02-15 18:07] VITALS: BP 142/86
[2020-02-15 20:06] LABS: ABSOLUTE BASOPHILS 0.1 thou/uL (0.0-0.2); ABSOLUTE EOSINOPHILS 0.1 thou/uL (0.0-0.7); ABSOLUTE MONOCYTES 0.4 thou/uL (0.0-1.2); ABSOLUTE NEUTROPHILS 4.9 thou/uL (1.6-8.1); BASOPHILS 1.1 %; EOSINOPHILS 2.2 %; HEMATOCRIT 39.6 % (42.0-52.0); HEMOGLOBIN 13.2 gm/dL (14.0-18.0); LYMPHOCYTES 15.9 %; MCH 25.8 pg (26.0-34.0); MCHC 33.4 g/dL (28.0-37.0); MCV 77.2 fL (80.0-100.0); MONOCYTES 5.7 %; MPV 8.4 fl. (7.2-11.1); NUCLEATED RBCS 0 /100WBC; PLATELET COUNT* 170 thou/uL (150-400); POLYS 75.1 %; RBC 5.13 mil/uL (4.50-6.00); RDW-CV 18.5 % (10.5-14.5); WBC 6.6 thou/uL (4.0-11.0)
[2020-02-15 20:14] LABS: CALCIUM 9.5 mg/dL (8.5-10.1); CREATININE 1.2 mg/dL (0.6-1.3); POTASSIUM 4.3 mmol/L (3.5-5.1)
[2020-02-15 20:19] LABS: ALBUMIN 3.4 g/dL (3.4-5.0); TOTAL BILIRUBIN 0.3 mg/dL (<0.1-1.0); TOTAL PROTEIN 7.8 g/dL (6.4-8.2); URIC ACID* 5.5 mg/dL (2.6-7.2)
[2020-02-15 21:32] LABS: ESR (SEDRATE) 79 mm/hr (0-20)
[2020-02-16 00:30] VITALS: BP 167/67
--- NOTE | 2020-02-16 05:08 | NUR ---
ALERT AND ORIENTED X 4 MALE PATIENT TO BED 118 AT 0040 BY CART FROM ER IN STABLE CONDITION. ADMISSION ROUTINES IN PROGRESS. UP INDEPENDENTLY. VITAL SIGNS STABLE. BLOOD SUGAR RECHECKED AFTER ARRIVAL TO UNIT WITH SLIDING SCALE INSULIN PROVIDED WELL A SNACK. LEFT MEDIAL ANKLE INCISION INFECTION/CELLULITIS CLEANSED WITH WOUND CLEANSER, PHOTOS TAKEN AND MEPILEX AG DRESSING PLACED. IVF'S AND ANTIBIOTICS PER ORDER. DENIES PAIN. HOME CPAP SET UP AND HAS BEEN IN USE. CONTINUE TO MONITOR.
[2020-02-16 08:00] VITALS: BP 157/64
[2020-02-16 16:24] VITALS: BP 133/66
--- NOTE | 2020-02-16 17:12 | NUR ---
CM COMPLETED INITIAL ASSESSMENT TO DISCUSS D/C PLANNING. PT LIVES WITH . HAS SUPPORT FROM ADULT CHILDREN. PT DRVIES AND IS ACTIVE. PT HAS CPAP. PT HAD HH "YEARS AGO FOR HIP REPLACEMENT AND BROKEN ANKLE, BUT DOES NOT RECALL. PT HAS NO HX W/SNF. PT IS INDEPENDENT W/ADLS. CM TO CONT TO FOLLOW.
[2020-02-16 20:20] VITALS: BP 133/63
[2020-02-17 04:00] VITALS: BP 138/55
--- NOTE | 2020-02-17 05:14 | NUR ---
PATIENT HAS REMAINED ALERT AND ORIENTED X 4 THROUGHOUT THE SHIFT AND RESTING QUIETLY AT INTERVALS ON HOURLY ROUNDS. UP TO DANGLE SEVERAL TIMES TO VOID. WOUND VAC INTACT/FUNCTIONING LLE. SMALL DRAINAGE ONLY IN CANISTER. CPAP OVERNIGHT WITH O2 BLEED IN AND CONTINUOUS OXIMETRY. MEDICATED FOR PAIN Q4H TO GOOD EFFECT. ANTIBIOTICS PER ORDER. AFEBRILE, VITAL SIGNS STABLE. CONTINUE TO MONITOR.
--- NOTE | 2020-02-17 06:42 | OP ---
[address] [address] OPERATIVE REPORT Name: GUERA WILLSON Room: [address] IN M.R.#: [id number] Admission: 02/15/20 Attend Phys: Didi Lou MD Discharge: Date of : 44 Report #: [id number] THIS REPORT FOR: //name// cc: Rishabh Aguayo Vincent R. DO ~ THIS REPORT FOR: //name// CC: Didi Aguayo DATE OF SERVICE: 02/16/2020 PREOPERATIVE DIAGNOSIS: History of cellulitis, left lower leg with a prior incisional debridement back in December of this year for a painful previous hardware placement in his left ankle years ago and cellulitis to the left lower extremity with drainage. POSTOPERATIVE DIAGNOSIS: History of cellulitis, left lower leg with a prior incisional debridement back in December of this year for a painful previous hardware placement in his left ankle years ago and cellulitis to the left lower extremity with drainage. SURGERY PERFORMED: Excisional debridement, 12 cm x 1 cm; removal of skin edges by sharp dissection down to the subcutaneous tissues and the lavage and irrigation and massaged debridement was down to the fascia and the bone of the tibia. The patient did have application of Prevena wound VAC to the lower extremity as well. SURGEON: Dr. Ramirez. RELATIONSHIP SPECIALIST: Kristie Sanabria DO SECOND FRAUD INVESTIGATOR: Silverio Stewart DO ANESTHESIA: General anesthetic. He has been on scheduled vancomycin dose IV. He has no complication. He does have the Prevena wound VAC as stated, otherwise estimated blood loss is 25 mL. GROSS FINDINGS PRIOR TO SURGERY: This gentleman had been followed in the Orthopedic Clinic showing well-healed area over his lower extremity from his past surgical site, but presented through the Emergency Room with a painful lower leg region again on both left side. Subjectively he had some fevers as well and he tells me there was some copious drainage from this area. Intraoperative findings correlated with no copious drainage areas. There was definitely hematoma within surgical site, so this could be an infected [place] [address] OPERATIVE REPORT Name: DEMETRISGUERA MOON Room: [address] IN .R.#: [id number] Admission: 02/15/20 Attend Phys: Didi Lou MD Discharge: Date of : 44 Report #: [id number] area as the surrounding tissues did not show any gross purulence. He did have a slight fluctuant area in the Achilles region just slightly posterior medial to that and even with a small stab incision, there was no active drainage whatsoever coming out of that area. The patient did have a good placement of the Prevena wound VAC with good seal. I did try to close him initially primarily, but there was too much tension on the skin edges so we elected to do Prevena. DESCRIPTION OF PROCEDURE: The patient was taken to the operating room and placed on the table, given a general anesthetic by the anesthesia department. A well-padded tourniquet was placed on his left thigh, but we did not use it during surgery. The patient did have a Hibiclens scrub with chlorhexidine prep as well as sterile drape for left lower extremity surgery. Timeout was called and verified by everyone in the room for the left lower extremity. At this point in time surgery began with opening up the previous surgical incision with a 15 blade scalpel at the skin and subcutaneous tissues. Blunt dissection was carried down to the next deep fascia and bone layer. The edges were undermined on each side. The previous skin edges had some necrosis to them, so we ellipsed out by sharp dissection as stated above this entire length and width of that area with 15 blade scalpel. We did a copious 3000 normal saline irrigation and massaged debridement and irrigation across the entire surgical site. At this point in time, we attempted to close the wound primarily, but it would not close so elected to do the Prevena wound VAC with excellent seal applied. The patient was transferred off the table and taken to recovery in stable condition. I attest I was present for all critical aspects of surgery. Needle, instrument, sponge counts correct. <ELECTRONICALLY SIGNED> By: Farhad Ramirez DO 02/17/20 0642 1500 1557Farhad Ramirez DO /nt
[2020-02-17 07:36] LABS: HEMATOCRIT 37.3 % (42.0-52.0); HEMOGLOBIN 12.3 gm/dL (14.0-18.0); MCH 25.3 pg (26.0-34.0); MCV 76.7 fL (80.0-100.0); MPV 8.3 fl. (7.2-11.1); RBC 4.87 mil/uL (4.50-6.00); WBC 6.8 thou/uL (4.0-11.0)
[2020-02-17 07:47] LABS: CALCIUM 8.8 mg/dL (8.5-10.1); POTASSIUM 4.2 mmol/L (3.5-5.1)
[2020-02-17 16:00] VITALS: BP 147/58
--- NOTE | 2020-02-17 18:48 | NUR ---
PT A&OX4 VSS. WOUND VAC TO LLE INNER ASPECT NEAR ANKLE. VAC RUNNING AT 125. PT TO BE WB TOLERATED. PT ACCUCHECK, INSULIN ADMINISTERED ORDERED. PT ON 2L O2 SINCE PROCEDURE YESTERDAY. IV ABX ADMINISTERED ORDERED. IV TO RAC PATENT, NO REDNESS/SWELLING NOTED AT SITE. PT IS [place], NO HEARING AIDES USED. PT CONTINENT OF B/B, URINAL AT BEDSIDE. PT RESTS IN ROOM WITH CALL LIGHT IN REACH, WILL CONTINUE TO MONITOR.
[2020-02-17 20:00] VITALS: BP 160/62
--- NOTE | 2020-02-18 06:41 | NUR ---
Alert and oriented x 4. He has a woundvac to his L ankle set at 125 & all is intact.He has had pain meds x 3 this shift. He has slept well.
[2020-02-18 08:17] VITALS: BP 122/57
[2020-02-18 16:00] VITALS: BP 140/59
--- NOTE | 2020-02-18 17:10 | NUR ---
ALERT AND ORIENTED X 4 PATIENT DOES GET HIMSELF UP TO THE CHAIR AT TIMES. AND CAN AMBULATE TO THE BATHROOM WITH ASSISTANCE. HE TURNS HIMSELF IN BED. HE JUST FINISHED EATING SUPPER AND EATS VERY WELL. CALL LIGHT IN EASY REACH. HE HAS BEEN MEDICATED X 2 FOR LEFT LOWER LEG PAIN. NO DISTRESS NOTED TODAY. HE HAS BEEN NAPPING OFF AND ON AND UP TO THE CHAIR TWICE TODAY.
[2020-02-18 19:56] VITALS: BP 142/56
[2020-02-19] VITALS (8 sets, daily range): BP systolic 160; BP diastolic 69
--- NOTE | 2020-02-19 07:41 | NUR ---
PATIENT HAS RESTED WELL THROUGHOUT THE NIGHT. VSS ON RA. MEDICATIONS GIVEN ORDERED AND CHARTED. PATIENT HAS NOT BEEN UP DURING THE NIGHT. WOUND VAC TO LEFT LOWER EXTREMITY TO SUCTION AND DRESSING IS C/D/I. IV IN RIGHT AC-SL. PATIENT IS REFUSING FLUIDS HE STATES THAT IT IS MAKING HIM GO TO THE BATHROOM TOO MUCH AND HE DOES NOT WANT THEM RUNNING. PATIENT INSTRUCTED TO USE CALL LIGHT WHEN NEEDING ASSISTANCE. HOURLY ROUNDS MADE. WILL CONTINUE WITH PLAN OF CARE AND NURSING TO MONITOR.
--- NOTE | 2020-02-19 14:58 | NUR ---
CM SPOKE TO THE PT TO DISCUSS DISCHARGE PLANNING NEEDS AND HH AT D/C. PT HAS HX OF HH, BUT COULD NOT RECALL THE NAME. CM PROVIDED HH LIST AND PT SELECTED [facility]. CM FAXED CLINCIAL INFO AND FACESHEET TO [facility]. CM INFORMED BY NURSING THAT THE PT WOULD NEED A WOUNDVAC AT D/C, HOWEVER NO ORDERS WRITTEN OR WOUNDVAC ORDERED AT THIS TIME. NURSING ATTEMPTING TO OBTAIN ORDER FROM ORTHO. WOUNDCARE ORDERS ALSO NEEDED FOR PT PRIOR TO D/C. PT UNABLE TO D/C WITHOUT THE ABOVE ITEMS ARRANGED. CM WILL REMAIN AVAILABLE TO ASSIST AND FOLLOW NEEDED.
--- NOTE | 2020-02-19 15:29 | NUR ---
WOUND NURSE: PATIENT SEEN TODAY TO ADDRESS POSTOP OPEN WOUND ON LEFT LOWER LEG POST SURGICAL I&D. MEASURES 11.0 X 3.0 X 1.0, CONTAINS UNDERMINING OF 1.0CM FROM 11 TO 5 O'CLOCK. WOUND BEDC WITH RED, NONGRANULATING TISSUE. MODERATE AMOUNT OF SEROUSANGUINOUS DRAINAGE. REMOVED THE VAC ULTA FROM THE WOUND THAT ORTHO HAD PLACED. PICCO DRESSING APPLIED TO WOUND PER DR. DUNNE'S ORDERS, VM TO [facility] TO CALL PATIENT ON SATURDAY FOR APPT TO ADDRESS WOUND. WILL PROVIDE PATIENT WITH BUSINESS CARD FOR [facility] AND INSTRUCTION TO CALL SATURDAY IF HE IS NOT CALLED BY THEM.
[2020-02-19] MEDS ORDERED: AMOXICILLIN 50500 MG PO (16:48)
--- NOTE | 2020-02-19 17:37 | NUR ---
PATIENT DISCHARGED FROM UNIT AT 1735. ALERT AND ORIENTED X 4. VITAL SIGNS STABLE ON ROOM AIR. UP WITH MIN. ASSIST IN ROOM. WOUND VAC DISCONTINUED. IV DISCONTINUED. PAIN BEING MANAGED WITH PO MEDICATION. DENIES NAUSEA AT THIS TIME. MEDICATION INFORMATION AND SCRIPT GIVEN TO PATIENT. PAIN MEDICATION SCRIPT CALLED INTO PHARMACY. LEFT WITH ALL BELONGINGS. PATIENT LEFT WITH SON VIA CAR.
[2020-02-19] MEDS ORDERED: NORCO 5-325 TA1 EAC2 PO (17:38)
== END 2020-02-19 17:35 | disposition home health service (06) | DRG 464 ==
LOC: M.ERS 17:50 → M.TBA-ER 20:42 → M.ORTHSURG 20:42
PROVIDERS: Internal Medicine; Nurse Practitioner Family; ADMIT Internal Medicine; ATTEND Internal Medicine
PROC: 5A09357 Assistance with Respiratory Ventilation, Less than 24 Consecutive Hours, Continuous Positive Airway Pressure (ICD-10-PCS; principal; 2020-02-16)
PROC: 0JBP0ZZ Excision of Left Lower Leg Subcutaneous Tissue and Fascia, Open Approach (ICD-10-PCS; principal; 2020-02-16)
DX: T84.629A Infection and inflammatory reaction due to internal fixation device of unspecified bone of leg, initial encounter (principal); T81.31XA Disruption of external operation (surgical) wound, not elsewhere classified, initial encounter; L03.116 Cellulitis of left lower limb; M86.8X7 Other osteomyelitis, ankle and foot; J43.9 Emphysema, unspecified; Z96.641 Presence of right artificial hip joint; I10 Essential (primary) hypertension; I25.10 Atherosclerotic heart disease of native coronary artery without angina pectoris; G47.33 Obstructive sleep apnea (adult) (pediatric); E66.9 Obesity, unspecified; M72.9 Fibroblastic disorder, unspecified; E11.69 Type 2 diabetes mellitus with other specified complication; Z20.828 Contact with and (suspected) exposure to other viral communicable diseases; Z95.5 Presence of coronary angioplasty implant and graft; Z98.42 Cataract extraction status, left eye; Z98.41 Cataract extraction status, right eye; Z88.0 Allergy status to penicillin; Z68.32 Body mass index [BMI] 32.0-32.9, adult; Z79.899 Other long term (current) drug therapy; Y83.8 Other surgical procedures as the cause of abnormal reaction of the patient, or of later complication, without mention of misadventure at the time of the procedure; Y92.89 Other specified places as the place of occurrence of the external cause

== ENCOUNTER → 2020-02-22 | Outpatient (CLI) | payer MEDICARE, BC ==
[~2020-02-22] MED LIST changes: +AMOXICILLIN 50500 MG PO; +NORCO 5-325 TA1 EAC2 PO
== END ==
LOC: M.WC 08:00
PROVIDERS: ATTEND Surgery
DX: T81.31XA Disruption of external operation (surgical) wound, not elsewhere classified, initial encounter (principal); L03.116 Cellulitis of left lower limb; I87.2 Venous insufficiency (chronic) (peripheral); I10 Essential (primary) hypertension; J43.9 Emphysema, unspecified; Z87.891 Personal history of nicotine dependence; Z96.641 Presence of right artificial hip joint; Z98.41 Cataract extraction status, right eye; Z98.42 Cataract extraction status, left eye; Z95.5 Presence of coronary angioplasty implant and graft; Z79.82 Long term (current) use of aspirin; Y92.238 Other place in hospital as the place of occurrence of the external cause; Y83.8 Other surgical procedures as the cause of abnormal reaction of the patient, or of later complication, without mention of misadventure at the time of the procedure

== ENCOUNTER → 2020-02-29 | Outpatient (CLI) | payer MEDICARE, BC | LOC: M.WC 02:45 | PROVIDERS: ATTEND Surgery | DX: T81.31XD Disruption of external operation (surgical) wound, not elsewhere classified, subsequent encounter (principal); L03.116 Cellulitis of left lower limb; I87.2 Venous insufficiency (chronic) (peripheral); E11.9 Type 2 diabetes mellitus without complications; J43.9 Emphysema, unspecified; I10 Essential (primary) hypertension; Z87.891 Personal history of nicotine dependence; Z79.4 Long term (current) use of insulin; Z79.82 Long term (current) use of aspirin; Y83.8 Other surgical procedures as the cause of abnormal reaction of the patient, or of later complication, without mention of misadventure at the time of the procedure ==

== ENCOUNTER → 2020-03-07 | Outpatient (CLI) | payer MEDICARE, BC | LOC: M.WC 04:15 | PROVIDERS: ATTEND Surgery | DX: T81.31XD Disruption of external operation (surgical) wound, not elsewhere classified, subsequent encounter (principal); L03.116 Cellulitis of left lower limb; I87.2 Venous insufficiency (chronic) (peripheral); I10 Essential (primary) hypertension; J43.9 Emphysema, unspecified; Z87.891 Personal history of nicotine dependence; Y83.8 Other surgical procedures as the cause of abnormal reaction of the patient, or of later complication, without mention of misadventure at the time of the procedure ==

== ENCOUNTER → 2020-03-14 | Outpatient (CLI) | payer MEDICARE, BC | LOC: M.WC 06:56 | PROVIDERS: ATTEND Surgery | DX: T81.31XD Disruption of external operation (surgical) wound, not elsewhere classified, subsequent encounter (principal); E11.622 Type 2 diabetes mellitus with other skin ulcer; L97.322 Non-pressure chronic ulcer of left ankle with fat layer exposed; L03.116 Cellulitis of left lower limb; I87.2 Venous insufficiency (chronic) (peripheral); I10 Essential (primary) hypertension; J43.9 Emphysema, unspecified; Z87.891 Personal history of nicotine dependence; Y83.8 Other surgical procedures as the cause of abnormal reaction of the patient, or of later complication, without mention of misadventure at the time of the procedure ==

== ENCOUNTER → 2020-03-21 | Outpatient (CLI) | payer MEDICARE, BC | LOC: M.WC 03:24 | PROVIDERS: ATTEND Surgery | DX: T81.31XD Disruption of external operation (surgical) wound, not elsewhere classified, subsequent encounter (principal); E11.622 Type 2 diabetes mellitus with other skin ulcer; L97.322 Non-pressure chronic ulcer of left ankle with fat layer exposed; L03.116 Cellulitis of left lower limb; I87.2 Venous insufficiency (chronic) (peripheral); I10 Essential (primary) hypertension; J43.9 Emphysema, unspecified; Z87.891 Personal history of nicotine dependence; Y83.8 Other surgical procedures as the cause of abnormal reaction of the patient, or of later complication, without mention of misadventure at the time of the procedure ==

== ENCOUNTER → 2020-04-04 | Outpatient (CLI) | payer MEDICARE, BC | LOC: M.WC 04:07 | PROVIDERS: ATTEND Surgery | DX: T81.31XD Disruption of external operation (surgical) wound, not elsewhere classified, subsequent encounter (principal); E11.622 Type 2 diabetes mellitus with other skin ulcer; L97.322 Non-pressure chronic ulcer of left ankle with fat layer exposed; L03.116 Cellulitis of left lower limb; I87.2 Venous insufficiency (chronic) (peripheral); I10 Essential (primary) hypertension; J43.9 Emphysema, unspecified; Z87.891 Personal history of nicotine dependence; Y83.8 Other surgical procedures as the cause of abnormal reaction of the patient, or of later complication, without mention of misadventure at the time of the procedure ==

== ENCOUNTER → 2020-04-07 | Outpatient (CLI) | payer MEDICARE, BC | LOC: M.WC 12:29 | PROVIDERS: ATTEND Family Medicine | DX: T81.31XD Disruption of external operation (surgical) wound, not elsewhere classified, subsequent encounter (principal); E11.622 Type 2 diabetes mellitus with other skin ulcer; L97.821 Non-pressure chronic ulcer of other part of left lower leg limited to breakdown of skin; L03.116 Cellulitis of left lower limb; I87.2 Venous insufficiency (chronic) (peripheral); I10 Essential (primary) hypertension; J43.9 Emphysema, unspecified; Z87.891 Personal history of nicotine dependence; Y83.8 Other surgical procedures as the cause of abnormal reaction of the patient, or of later complication, without mention of misadventure at the time of the procedure ==

== ENCOUNTER → 2020-04-11 | Outpatient (CLI) | payer MEDICARE, BC | LOC: M.WC 07:04 | PROVIDERS: ATTEND Surgery | DX: T81.31XD Disruption of external operation (surgical) wound, not elsewhere classified, subsequent encounter (principal); E11.622 Type 2 diabetes mellitus with other skin ulcer; L97.322 Non-pressure chronic ulcer of left ankle with fat layer exposed; L03.116 Cellulitis of left lower limb; I87.2 Venous insufficiency (chronic) (peripheral); J43.9 Emphysema, unspecified; I10 Essential (primary) hypertension; Z87.891 Personal history of nicotine dependence; Z95.5 Presence of coronary angioplasty implant and graft; Y83.8 Other surgical procedures as the cause of abnormal reaction of the patient, or of later complication, without mention of misadventure at the time of the procedure ==

== ENCOUNTER → 2020-04-18 | Outpatient (CLI) | payer MEDICARE, BC | LOC: M.WC 02:18 | PROVIDERS: ATTEND Surgery | DX: T81.31XD Disruption of external operation (surgical) wound, not elsewhere classified, subsequent encounter (principal); S81.812A Laceration without foreign body, left lower leg, initial encounter; E11.622 Type 2 diabetes mellitus with other skin ulcer; L97.322 Non-pressure chronic ulcer of left ankle with fat layer exposed; L03.116 Cellulitis of left lower limb; I87.2 Venous insufficiency (chronic) (peripheral); I10 Essential (primary) hypertension; J43.9 Emphysema, unspecified; Z87.891 Personal history of nicotine dependence; X58.XXXA Exposure to other specified factors, initial encounter; Y93.89 Activity, other specified; Y92.89 Other specified places as the place of occurrence of the external cause; Y99.8 Other external cause status; Y83.8 Other surgical procedures as the cause of abnormal reaction of the patient, or of later complication, without mention of misadventure at the time of the procedure ==

== ENCOUNTER → 2020-04-21 | Outpatient (CLI) | payer MEDICARE, BC | LOC: M.WC 05:00 | PROVIDERS: ATTEND Surgery | DX: T81.31XD Disruption of external operation (surgical) wound, not elsewhere classified, subsequent encounter (principal); S81.812D Laceration without foreign body, left lower leg, subsequent encounter; E11.622 Type 2 diabetes mellitus with other skin ulcer; L97.322 Non-pressure chronic ulcer of left ankle with fat layer exposed; L03.116 Cellulitis of left lower limb; J43.9 Emphysema, unspecified; I10 Essential (primary) hypertension; I87.2 Venous insufficiency (chronic) (peripheral); Z87.891 Personal history of nicotine dependence; Y83.8 Other surgical procedures as the cause of abnormal reaction of the patient, or of later complication, without mention of misadventure at the time of the procedure ==

== ENCOUNTER → 2020-04-25 | Outpatient (CLI) | payer MEDICARE, BC | LOC: M.WC 03:37 | PROVIDERS: ATTEND Surgery | DX: T81.31XD Disruption of external operation (surgical) wound, not elsewhere classified, subsequent encounter (principal); E11.622 Type 2 diabetes mellitus with other skin ulcer; L97.322 Non-pressure chronic ulcer of left ankle with fat layer exposed; L03.116 Cellulitis of left lower limb; I87.2 Venous insufficiency (chronic) (peripheral); I10 Essential (primary) hypertension; J43.9 Emphysema, unspecified; Z87.891 Personal history of nicotine dependence; Y83.8 Other surgical procedures as the cause of abnormal reaction of the patient, or of later complication, without mention of misadventure at the time of the procedure ==

== ENCOUNTER → 2020-05-02 | Outpatient (CLI) | payer MEDICARE, BC | LOC: M.WC 05:43 | PROVIDERS: ATTEND Surgery | DX: T81.31XD Disruption of external operation (surgical) wound, not elsewhere classified, subsequent encounter (principal); E11.622 Type 2 diabetes mellitus with other skin ulcer; L97.322 Non-pressure chronic ulcer of left ankle with fat layer exposed; L03.116 Cellulitis of left lower limb; I87.2 Venous insufficiency (chronic) (peripheral); I10 Essential (primary) hypertension; J43.9 Emphysema, unspecified; Z87.891 Personal history of nicotine dependence; Y83.8 Other surgical procedures as the cause of abnormal reaction of the patient, or of later complication, without mention of misadventure at the time of the procedure ==

== ENCOUNTER → 2020-05-09 | Outpatient (CLI) | payer MEDICARE, BC | LOC: M.WC 07:42 | PROVIDERS: ATTEND Surgery | DX: T81.31XD Disruption of external operation (surgical) wound, not elsewhere classified, subsequent encounter (principal); E11.622 Type 2 diabetes mellitus with other skin ulcer; L97.322 Non-pressure chronic ulcer of left ankle with fat layer exposed; L03.116 Cellulitis of left lower limb; I87.2 Venous insufficiency (chronic) (peripheral); I10 Essential (primary) hypertension; J43.9 Emphysema, unspecified; Z87.891 Personal history of nicotine dependence; Y83.8 Other surgical procedures as the cause of abnormal reaction of the patient, or of later complication, without mention of misadventure at the time of the procedure ==

== ENCOUNTER → 2020-05-16 | Outpatient (CLI) | payer MEDICARE, BC | LOC: M.WC 05:33 | PROVIDERS: ATTEND Surgery | DX: T81.31XD Disruption of external operation (surgical) wound, not elsewhere classified, subsequent encounter (principal); E11.622 Type 2 diabetes mellitus with other skin ulcer; L97.322 Non-pressure chronic ulcer of left ankle with fat layer exposed; L03.116 Cellulitis of left lower limb; I87.2 Venous insufficiency (chronic) (peripheral); I10 Essential (primary) hypertension; J43.9 Emphysema, unspecified; Z87.891 Personal history of nicotine dependence; Y83.8 Other surgical procedures as the cause of abnormal reaction of the patient, or of later complication, without mention of misadventure at the time of the procedure ==

== ENCOUNTER → 2020-05-23 | Outpatient (CLI) | payer MEDICARE, BC | LOC: M.WC 07:36 | PROVIDERS: ATTEND Surgery | DX: T81.31XD Disruption of external operation (surgical) wound, not elsewhere classified, subsequent encounter (principal); E11.622 Type 2 diabetes mellitus with other skin ulcer; L97.322 Non-pressure chronic ulcer of left ankle with fat layer exposed; L03.116 Cellulitis of left lower limb; I87.2 Venous insufficiency (chronic) (peripheral); I10 Essential (primary) hypertension; J43.9 Emphysema, unspecified; Z87.891 Personal history of nicotine dependence; Y83.8 Other surgical procedures as the cause of abnormal reaction of the patient, or of later complication, without mention of misadventure at the time of the procedure ==

== ENCOUNTER → 2020-05-30 | Outpatient (CLI) | payer MEDICARE, BC | LOC: M.WC 08:00 | PROVIDERS: ATTEND Surgery | DX: T81.31XD Disruption of external operation (surgical) wound, not elsewhere classified, subsequent encounter (principal); E11.622 Type 2 diabetes mellitus with other skin ulcer; L97.322 Non-pressure chronic ulcer of left ankle with fat layer exposed; L03.116 Cellulitis of left lower limb; I87.2 Venous insufficiency (chronic) (peripheral); I10 Essential (primary) hypertension; J43.9 Emphysema, unspecified; Z87.891 Personal history of nicotine dependence; Y83.8 Other surgical procedures as the cause of abnormal reaction of the patient, or of later complication, without mention of misadventure at the time of the procedure ==

== ENCOUNTER → 2020-06-06 | Outpatient (CLI) | payer MEDICARE, BC | LOC: M.WC 08:00 | PROVIDERS: ATTEND Surgery | DX: T81.31XD Disruption of external operation (surgical) wound, not elsewhere classified, subsequent encounter (principal); E11.622 Type 2 diabetes mellitus with other skin ulcer; L97.822 Non-pressure chronic ulcer of other part of left lower leg with fat layer exposed; S81.802A Unspecified open wound, left lower leg, initial encounter; L03.116 Cellulitis of left lower limb; I87.2 Venous insufficiency (chronic) (peripheral); I10 Essential (primary) hypertension; J43.9 Emphysema, unspecified; X58.XXXA Exposure to other specified factors, initial encounter; Y93.89 Activity, other specified; Y92.89 Other specified places as the place of occurrence of the external cause; Y99.8 Other external cause status; Y83.8 Other surgical procedures as the cause of abnormal reaction of the patient, or of later complication, without mention of misadventure at the time of the procedure ==

== ENCOUNTER → 2020-06-13 | Outpatient (CLI) | payer MEDICARE, BC | LOC: M.WC 07:33 | PROVIDERS: ATTEND Surgery | DX: T81.31XD Disruption of external operation (surgical) wound, not elsewhere classified, subsequent encounter (principal); E11.622 Type 2 diabetes mellitus with other skin ulcer; L97.322 Non-pressure chronic ulcer of left ankle with fat layer exposed; I87.2 Venous insufficiency (chronic) (peripheral); L03.116 Cellulitis of left lower limb; J43.9 Emphysema, unspecified; I10 Essential (primary) hypertension; Z87.891 Personal history of nicotine dependence; Z79.82 Long term (current) use of aspirin; Z79.4 Long term (current) use of insulin; Y83.8 Other surgical procedures as the cause of abnormal reaction of the patient, or of later complication, without mention of misadventure at the time of the procedure ==

== ENCOUNTER → 2020-06-20 | Outpatient (CLI) | payer MEDICARE, BC | LOC: M.WC 07:57 | PROVIDERS: ATTEND Surgery | DX: T81.31XD Disruption of external operation (surgical) wound, not elsewhere classified, subsequent encounter (principal); E11.622 Type 2 diabetes mellitus with other skin ulcer; L97.322 Non-pressure chronic ulcer of left ankle with fat layer exposed; L03.116 Cellulitis of left lower limb; I87.2 Venous insufficiency (chronic) (peripheral); J43.9 Emphysema, unspecified; I10 Essential (primary) hypertension; Z87.891 Personal history of nicotine dependence; Y83.8 Other surgical procedures as the cause of abnormal reaction of the patient, or of later complication, without mention of misadventure at the time of the procedure ==

== ENCOUNTER → 2020-06-27 | Outpatient (CLI) | payer MEDICARE, BC | LOC: M.WC 07:52 | PROVIDERS: ATTEND Surgery | DX: T81.31XD Disruption of external operation (surgical) wound, not elsewhere classified, subsequent encounter (principal); E11.622 Type 2 diabetes mellitus with other skin ulcer; L97.322 Non-pressure chronic ulcer of left ankle with fat layer exposed; L03.116 Cellulitis of left lower limb; I87.2 Venous insufficiency (chronic) (peripheral); J43.9 Emphysema, unspecified; I10 Essential (primary) hypertension; Z87.891 Personal history of nicotine dependence; Y83.8 Other surgical procedures as the cause of abnormal reaction of the patient, or of later complication, without mention of misadventure at the time of the procedure ==

== ENCOUNTER → 2020-07-04 | Outpatient (CLI) | payer MEDICARE, BC | LOC: M.WC 07:55 | PROVIDERS: ATTEND Surgery | DX: T81.31XD Disruption of external operation (surgical) wound, not elsewhere classified, subsequent encounter (principal); E11.622 Type 2 diabetes mellitus with other skin ulcer; L97.322 Non-pressure chronic ulcer of left ankle with fat layer exposed; L03.116 Cellulitis of left lower limb; I87.2 Venous insufficiency (chronic) (peripheral); J43.9 Emphysema, unspecified; I10 Essential (primary) hypertension; Z87.891 Personal history of nicotine dependence; Z79.4 Long term (current) use of insulin; Z79.82 Long term (current) use of aspirin; Y83.8 Other surgical procedures as the cause of abnormal reaction of the patient, or of later complication, without mention of misadventure at the time of the procedure ==

== ENCOUNTER → 2020-07-11 | Outpatient (CLI) | payer MEDICARE, BC | LOC: M.WC 07:53 | PROVIDERS: ATTEND Surgery | DX: T81.31XD Disruption of external operation (surgical) wound, not elsewhere classified, subsequent encounter (principal); E11.622 Type 2 diabetes mellitus with other skin ulcer; L97.322 Non-pressure chronic ulcer of left ankle with fat layer exposed; I87.2 Venous insufficiency (chronic) (peripheral); L03.116 Cellulitis of left lower limb; J43.9 Emphysema, unspecified; I10 Essential (primary) hypertension; Z87.891 Personal history of nicotine dependence; Z79.4 Long term (current) use of insulin; Z79.82 Long term (current) use of aspirin; Y83.8 Other surgical procedures as the cause of abnormal reaction of the patient, or of later complication, without mention of misadventure at the time of the procedure ==

== ENCOUNTER → 2020-07-18 | Outpatient (CLI) | payer MEDICARE, BC | LOC: M.WC 07:55 | PROVIDERS: ATTEND Surgery | DX: T81.31XD Disruption of external operation (surgical) wound, not elsewhere classified, subsequent encounter (principal); E11.622 Type 2 diabetes mellitus with other skin ulcer; L97.322 Non-pressure chronic ulcer of left ankle with fat layer exposed; I87.2 Venous insufficiency (chronic) (peripheral); L03.116 Cellulitis of left lower limb; J43.9 Emphysema, unspecified; I10 Essential (primary) hypertension; Z87.891 Personal history of nicotine dependence; Z79.4 Long term (current) use of insulin; Z79.82 Long term (current) use of aspirin; Y83.8 Other surgical procedures as the cause of abnormal reaction of the patient, or of later complication, without mention of misadventure at the time of the procedure ==

== ENCOUNTER → 2020-07-25 | Outpatient (CLI) | payer MEDICARE, BC | LOC: M.WC 07:27 | PROVIDERS: ATTEND Surgery | DX: T81.31XD Disruption of external operation (surgical) wound, not elsewhere classified, subsequent encounter (principal); E11.622 Type 2 diabetes mellitus with other skin ulcer; L97.322 Non-pressure chronic ulcer of left ankle with fat layer exposed; L03.116 Cellulitis of left lower limb; I87.2 Venous insufficiency (chronic) (peripheral); I10 Essential (primary) hypertension; J43.9 Emphysema, unspecified; Z87.891 Personal history of nicotine dependence; Y83.8 Other surgical procedures as the cause of abnormal reaction of the patient, or of later complication, without mention of misadventure at the time of the procedure ==

== ENCOUNTER → 2020-08-01 | Outpatient (CLI) | payer MEDICARE, BC | LOC: M.WC 07:53 | PROVIDERS: ATTEND Surgery | DX: T81.31XD Disruption of external operation (surgical) wound, not elsewhere classified, subsequent encounter (principal); E11.622 Type 2 diabetes mellitus with other skin ulcer; L97.322 Non-pressure chronic ulcer of left ankle with fat layer exposed; L03.116 Cellulitis of left lower limb; I87.2 Venous insufficiency (chronic) (peripheral); J43.9 Emphysema, unspecified; I10 Essential (primary) hypertension; Z87.891 Personal history of nicotine dependence; Z79.4 Long term (current) use of insulin; Z79.82 Long term (current) use of aspirin; Y83.8 Other surgical procedures as the cause of abnormal reaction of the patient, or of later complication, without mention of misadventure at the time of the procedure ==

== ENCOUNTER → 2020-08-15 | Outpatient (CLI) | payer MEDICARE, BC | LOC: M.WC 08-08 08:00 | PROVIDERS: ATTEND Surgery | DX: T81.31XD Disruption of external operation (surgical) wound, not elsewhere classified, subsequent encounter (principal); E11.622 Type 2 diabetes mellitus with other skin ulcer; L97.322 Non-pressure chronic ulcer of left ankle with fat layer exposed; L03.116 Cellulitis of left lower limb; I87.2 Venous insufficiency (chronic) (peripheral); J43.9 Emphysema, unspecified; I10 Essential (primary) hypertension; Z87.891 Personal history of nicotine dependence; Y83.8 Other surgical procedures as the cause of abnormal reaction of the patient, or of later complication, without mention of misadventure at the time of the procedure ==

== ENCOUNTER → 2020-08-22 | Outpatient (CLI) | payer MEDICARE, BC | LOC: M.WC 07:48 | PROVIDERS: ATTEND Surgery | DX: T81.31XD Disruption of external operation (surgical) wound, not elsewhere classified, subsequent encounter (principal); E11.622 Type 2 diabetes mellitus with other skin ulcer; L97.322 Non-pressure chronic ulcer of left ankle with fat layer exposed; L03.116 Cellulitis of left lower limb; I87.2 Venous insufficiency (chronic) (peripheral); J43.9 Emphysema, unspecified; I10 Essential (primary) hypertension; Z87.891 Personal history of nicotine dependence; Y83.8 Other surgical procedures as the cause of abnormal reaction of the patient, or of later complication, without mention of misadventure at the time of the procedure ==

== ENCOUNTER → 2020-12-16 | Outpatient (CLI) | payer MEDICARE, BC | LOC: M.RAD 08:26 | PROVIDERS: ATTEND Family Medicine | DX: R13.10 Dysphagia, unspecified (principal) ==

== ENCOUNTER → 2020-12-28 | Outpatient (CLI) | payer MEDICARE, BC | LOC: M.RAD 12-27 10:00 | PROVIDERS: ATTEND Family Medicine | DX: R13.10 Dysphagia, unspecified (principal); I63.9 Cerebral infarction, unspecified; E11.9 Type 2 diabetes mellitus without complications; Z79.4 Long term (current) use of insulin; I10 Essential (primary) hypertension ==

== ENCOUNTER → 2021-02-17 | Outpatient (CLI) | payer MEDICARE, BC | LOC: M.MRI 11:12 | PROVIDERS: ATTEND Orthopaedic Surgery | DX: M47.812 Spondylosis without myelopathy or radiculopathy, cervical region (principal) ==

== ENCOUNTER 2021-04-03 10:35 | Inpatient (IN) | payer MEDICARE, BC ==
[~2021-04-03] VITALS: Ht 152.4 cm; Wt 93.5 kg
[2021-04-03 10:41] VITALS: BP 131/57
[2021-04-03] MEDS ORDERED: AMLODIPINE BESY10 MG PO (10:47)
[2021-04-03] MEDS ORDERED: NOVOLIN R100 UNIT/1 SUBQ (10:49)
[2021-04-03] MEDS ORDERED: PROTONIX40 M4 PO (10:49)
[2021-04-03] MEDS ORDERED: MONTELUKAST SODI4 M1 PO (10:49)
[2021-04-03] MEDS ORDERED: NOVOLIN N100 UNIT/1 SUBQ (10:50)
[2021-04-03] MEDS ORDERED: COREG25 M1 PO (10:50)
[2021-04-03 11:10] LABS: ABSOLUTE BASOPHILS 0.1 thou/uL (0.0-0.2); ABSOLUTE EOSINOPHILS 0.1 thou/uL (0.0-0.7); ABSOLUTE LYMPHOCYTES 0.5 thou/uL (0.8-5.3); ABSOLUTE MONOCYTES 0.4 thou/uL (0.0-1.2); ABSOLUTE NEUTROPHILS 3.8 thou/uL (1.6-8.1); BASOPHILS 1.4 %; HEMATOCRIT 28.5 % (42.0-52.0); HEMOGLOBIN 9.6 gm/dL (14.0-18.0); MCH 26.5 pg (26.0-34.0); MCHC 33.6 g/dL (28.0-37.0); MONOCYTES 8.2 %; NUCLEATED RBCS 0 /100WBC; PLATELET COUNT* 283 thou/uL (150-400); POLYS 76.4 %; RBC 3.61 mil/uL (4.50-6.00); RDW-CV 19.2 % (10.5-14.5)
[2021-04-03 11:17] LABS: CALCIUM 9.8 mg/dL (8.5-10.1); POTASSIUM 4.6 mmol/L (3.5-5.1)
[2021-04-03 11:29] LABS: ALBUMIN 2.4 g/dL (3.4-5.0); TOTAL BILIRUBIN 0.9 mg/dL (<0.1-1.0); TOTAL PROTEIN 7.1 g/dL (6.4-8.2)
--- NOTE | 2021-04-03 12:07 | EKG ---
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: : 1940 Requested By: Neo Osorio Order Number: [id number] MD: Rubens Gómez Measurements Intervals [place] Rate: 65 P: 11 DE: 205 QRS: 9 QRSD: 96 T: 10 QT: 387 QTc: 403 Interpretive Statements Sinus rhythm Atrial premature complex Compared to ECG 01/18/2020 18:59:38 Atrial premature complex(es) now present Electronically Signed On 04-03-2021 12:06:32 CDT by Rubens Gómez [email or web address] <ELECTRONICALLY SIGNED> By: Rubens Gómez MD, [facility] 04/03/21 1206 1117 111 Rubens Gómez MD, [facility] /EPI
[2021-04-03 14:20] VITALS: BP 139/58
[2021-04-03 15:16] VITALS: BP 118/52
--- NOTE | 2021-04-03 15:44 | NUR ---
ARRIVED AT 1435. ALERT AND ABLE TO MAKE NEEDS KNOWN. DENIES CP OR SOB. 3L NC. VOIDS USING THE URINAL. SR ON THE MONITOR.[place]. AD CHAIM.
[2021-04-03 20:00] VITALS: BP 138/57
[2021-04-04] VITALS: BP 130/59
[2021-04-04 04:00] VITALS: BP 136/56
--- NOTE | 2021-04-04 04:37 | NUR ---
ASSUMED CARE OF PT AFTER REPORT AT 1930. PT A&OX4. VSS. PHYSICAL ASSESSMENT COMPLETED AND CHARTED. PT ON O2 AT 3-5L NC. PT TRACING SR/PAC.PVC ON TELE. PT UPSTANDBY TO RESTROOM. PT DENIES ANY PAIN. MAINTAINED ON ENHANCED PRECAUTION-COVID PCR PENDING. FALL PRECAUTION IN PLACE. CALL LIGHT WITHIN REACH.
[2021-04-04 05:20] LABS: HEMATOCRIT 27.4 % (42.0-52.0); HEMOGLOBIN 9.4 gm/dL (14.0-18.0); MCH 26.8 pg (26.0-34.0); MCHC 34.3 g/dL (28.0-37.0); MCV 78.3 fL (80.0-100.0); MPV 7.6 fl. (7.2-11.1); NUCLEATED RBCS 0 /100WBC; PLATELET COUNT* 278 thou/uL (150-400); RBC 3.49 mil/uL (4.50-6.00); RDW-CV 18.9 % (10.5-14.5); WBC 4.4 thou/uL (4.0-11.0)
[2021-04-04 05:26] LABS: CALCIUM 10.2 mg/dL (8.5-10.1); CREATININE 0.9 mg/dL (0.6-1.3); POTASSIUM 4.5 mmol/L (3.5-5.1)
[2021-04-04 06:18] LABS: ABSOLUTE LYMPHOCYTES 0.5 thou/uL (0.8-5.3); ABSOLUTE NEUTROPHILS 3.8 thou/uL (1.6-8.1)
[2021-04-04 06:19] LABS: ANISOCYTOSIS 1+; OVALOCYTES 1+; PLATELET ESTIMATE ADEQUATE; POIKILOCYTOSIS 1+
[2021-04-04 08:00] VITALS: BP 130/68
[2021-04-04 12:00] VITALS: BP 136/54
--- NOTE | 2021-04-04 18:16 | NUR ---
CM ATTEMPTED TO BOTH PT AND HIS VIA TELEPHONE. NO ANSWER. PER CHART HX, PT LIVES HOME WITH . HAS CPAP. HAS HX WITH ANUPAMA . PT IS CURRENTLY ON 3L. STEROIDS. BRONCHODILATORS AND ABX. PT WILL NEED REST AND EXERCISE OX AT CT.
[2021-04-04 20:15] VITALS: BP 126/55
[2021-04-05 00:41] VITALS: BP 120/57
--- NOTE | 2021-04-05 03:13 | NUR ---
ASSUMED CARE OF PT AT 1900. PT IS ALERT AND ORIENTED. VSS. PERRLA. NO COMPLAINTS OF PAIN. PERRLA. PT IS IN SINUS RYTHM ON THE TELEMETRY. PT IS RESTING COMFORTABLY IN BED. RESPIRATIONS ARE EVEN AND NONLABORED. WILL CONTINUE TO MONITOR PT.
[2021-04-05 04:55] VITALS: BP 127/61
[2021-04-05 05:35] LABS: ABSOLUTE LYMPHOCYTES 0.4 thou/uL (0.8-5.3); ABSOLUTE MONOCYTES 0.2 thou/uL (0.0-1.2); ABSOLUTE NEUTROPHILS 5.4 thou/uL (1.6-8.1); BASOPHILS 0.1 %; HEMATOCRIT 28.2 % (42.0-52.0); HEMOGLOBIN 9.6 gm/dL (14.0-18.0); LYMPHOCYTES 6.3 %; MCH 26.5 pg (26.0-34.0); MCHC 34.1 g/dL (28.0-37.0); MCV 77.8 fL (80.0-100.0); MONOCYTES 2.6 %; MPV 7.2 fl. (7.2-11.1); NUCLEATED RBCS 0 /100WBC; PLATELET COUNT* 310 thou/uL (150-400); RBC 3.63 mil/uL (4.50-6.00); RDW-CV 19.1 % (10.5-14.5)
[2021-04-05 05:42] LABS: ALBUMIN 2.4 g/dL (3.4-5.0); CALCIUM 10.3 mg/dL (8.5-10.1); POTASSIUM 4.4 mmol/L (3.5-5.1); TOTAL BILIRUBIN 0.4 mg/dL (<0.1-1.0)
[2021-04-05 08:00] VITALS: BP 138/61
[2021-04-05] MEDS ORDERED: PREDNISONE 10 M10 MG PO (08:18)
[2021-04-05] MEDS ORDERED: DOXYCYCLINE 10100 MG PO (08:18)
[2021-04-05 11:00] VITALS: BP 146/62
[2021-04-05 15:41] VITALS: BP 146/62
--- NOTE | 2021-04-05 18:14 | NUR ---
PATIENT RESTING IN BED. CALL LIGHT WITHIN REACH. 3L OXYGEN, NASAL CANNULA. ALERT AND ORIENTED X4. IV TO RIGHT AC, SALINE LOCKED, PATENT. LUNGS DIMINISHED TO THE LOWER BASES. LUNG SOUNDS COARSE WITH CRACKLES, BILATERALLY. BED IN LOW/LOCKED POSITION. ALL QUESTIONS AND CONCERNS ADDRESSED.
[2021-04-05 20:00] VITALS: BP 129/52
[2021-04-06] VITALS (7 sets, daily range): BP systolic 115–151; BP diastolic 52–72
--- NOTE | 2021-04-06 07:51 | NUR ---
ASSUMED CARE OF PT AFTER REPORT AT 1930. PT A&OX4. VSS. PHYSICAL ASSESSMENT COMPLETED AND CHARTED. PT ON O2 AT 3L NC. PT TRACING SR ON TELE. PT UPADLIB TO RESTROOM. PT DENIES ANY PAIN. CALL LIGHT WITHIN REACH.
--- NOTE | 2021-04-06 11:26 | NUR ---
Nutrition: Pt admitted with hypoxemia. H/o DJD, COPD, stroke in October. Pt stated he lost ~30# when he had his stroke. Now weighing 206#. He said he is eating well, no recent wt changes. BG elevated, 200s. On steroids. Alb 2.4, prealb 14.6. Was ssen for high BMI, 40.3. Appears at low nutrition risk.
--- NOTE | 2021-04-06 14:05 | NUR ---
PLAN FOR PT TO D/C TODAY PENDING HOME OXYGEN ARRANGEMENT. D/C HELD PREVIOUS DAY D/T NEEDING UPDATED R.T. RECOMMEDATIONS FOR HOME OXYGEN. THIS HAS BEEN COMPLETED AND AUTH HAS BEEN OBTAINED FOR PT'S HOME OXYGEN @ 3L CONTINUOUSLY. [employer] [facility] TO DELIVER PORTABLE OXYGEN CONCENTRATOR (P.O.C.) INOGEN TO THE PT'S BEDSIDE. CM WILL REMAIN AVAILABLE TO ASSIST AND FOLLOW NEEDED. [employer] PHONE: [phone]
--- NOTE | 2021-04-06 16:24 | NUR ---
PATIENT DISCHARGE AT THIS TIME VIA WHEELCHAIR ACCOMPANIED BY STAFF TO PRIVATE VEHICLE. IV DC'D, COTTON AND TAPE PLACED TO SITE. PERSONAL BELONGINGS GATHERED AND SENT WITH PATIENT. PATIENT WITH OXYGEN FOR HOME. DISCHARGE INSTRUCTIONS REVIEWED, ACKNOWLEDGED UNDERSTANDING. ALL QUESTIONS AND CONCERNS ADDRESSED.
== END 2021-04-06 16:10 | disposition home health service (06) | DRG 177 ==
LOC: M.ERS 10:35 → M.ORTHSURG 12:33 → M.TBA-ER 12:33 → M.ORTHSURG 14:35 → M.2W 04-05 06:09
PROVIDERS: Family Medicine; ADMIT Internal Medicine; ATTEND Internal Medicine
DX: J15.6 Pneumonia due to other Gram-negative bacteria (principal); J96.21 Acute and chronic respiratory failure with hypoxia; Z20.822 Contact with and (suspected) exposure to COVID-19; E11.9 Type 2 diabetes mellitus without complications; J43.9 Emphysema, unspecified; J45.909 Unspecified asthma, uncomplicated; I10 Essential (primary) hypertension; D64.9 Anemia, unspecified; M19.90 Unspecified osteoarthritis, unspecified site; Z96.641 Presence of right artificial hip joint; Z98.42 Cataract extraction status, left eye; Z98.41 Cataract extraction status, right eye; Z95.5 Presence of coronary angioplasty implant and graft; Z88.0 Allergy status to penicillin; Z87.891 Personal history of nicotine dependence; Z86.73 Personal history of transient ischemic attack (TIA), and cerebral infarction without residual deficits

== ENCOUNTER 2021-06-07 10:03 | Emergency (ER) | payer MEDICARE, BC ==
[~2021-06-07] VITALS: Ht 180.3 cm; Wt 95.3 kg
[~2021-06-07 10:03] MED LIST changes: +AMLODIPINE BESY10 MG PO; +COREG25 M1 PO; +DOXYCYCLINE 10100 MG PO; +MONTELUKAST SODI4 M1 PO; +NOVOLIN N100 UNIT/1 SUBQ; +NOVOLIN R100 UNIT/1 SUBQ; +PROTONIX40 M4 PO
[2021-06-07 11:09] LABS: HEMATOCRIT 39.9 % (42.0-52.0); HEMOGLOBIN 13.3 gm/dL (14.0-18.0); MCH 26.1 pg (26.0-34.0); MCHC 33.2 g/dL (28.0-37.0); MCV 78.5 fL (80.0-100.0); MPV 7.5 fl. (7.2-11.1); RBC 5.08 mil/uL (4.50-6.00); WBC 6.6 thou/uL (4.0-11.0)
[2021-06-07 11:27] LABS: CALCIUM 9.9 mg/dL (8.5-10.1); POTASSIUM 4.5 mmol/L (3.5-5.1)
[2021-06-07] MEDS ORDERED: NORCO5 PO ×2 (11:30→11:45)
[2021-06-07 11:53] VITALS: BP 164/98
--- NOTE | 2021-06-07 14:08 | EKG ---
[place] [address] ELECTROCARDIOGRAM REPORT Name: DEMETRISGUERA Campos Room: [facility]#: [id number] Admission: 06/07/21 Attend Phys: Discharge: 06/07/21 Date of : 44 Date of Service: 06/07/21 1045 Report #: [id number] THIS REPORT FOR: //name// [facility] ED Test Date: 2021-06-07 Test Time: 10:45:19 Pat Name: GUERA WILLSON Department: Room: Gender: Music Supervisor: [facility] : 1940 Requested By: Valerie Hayes Order Number: [id number] MD: Rubens Gómez Measurements Intervals [place] Rate: 72 P: 52 RI: 188 QRS: 8 QRSD: 94 T: 45 QT: 404 QTc: 443 Interpretive Statements Sinus rhythm Compared to ECG 04/03/2021 11:17:49 Atrial premature complex(es) no longer present Electronically Signed On 06-07-2021 14:08:16 SENIOR ADMINISTRATIVE SERVICES OFFICER by Rubens Gómez [email or web address] <ELECTRONICALLY SIGNED> By: Rubens Gómez MD, FACTom 06/07/21 1408 1045 1045 Rubens Gómez MD, [facility] /EPI
== END 2021-06-07 11:54 | disposition home or self-care (01) ==
LOC: M.ERS 10:03
PROVIDERS: Physician Assistant
DX: M79.602 Pain in left arm (principal); E11.9 Type 2 diabetes mellitus without complications; J43.9 Emphysema, unspecified; J45.909 Unspecified asthma, uncomplicated; I10 Essential (primary) hypertension; Z98.890 Other specified postprocedural states; Z79.4 Long term (current) use of insulin; Z79.82 Long term (current) use of aspirin; Z79.891 Long term (current) use of opiate analgesic; Z79.899 Other long term (current) drug therapy; Z88.0 Allergy status to penicillin; Z87.891 Personal history of nicotine dependence

== ENCOUNTER 2021-06-10 04:09 | Emergency (ER) | payer MEDICARE, BC ==
[~2021-06-10] VITALS: Ht 182.9 cm; Wt 95.3 kg
[~2021-06-10 04:09] MED LIST changes: +NORCO5 PO
[2021-06-10] MEDS ORDERED: TORADOL 10 MG T10 MG PO (04:55)
[2021-06-10] MEDS ORDERED: NEURONTIN 300M300 M2 PO (04:55)
[2021-06-10] MEDS ORDERED: MEDROLDOSEPACK PO (04:55)
[2021-06-10] MEDS ORDERED: PERCOCET 5-3251 EACH PO (04:55)
[2021-06-10] MEDS ORDERED: HYDROCODONE-AP1 EA11 PO (05:04)
[2021-06-10 05:06] VITALS: BP 174/73
== END 2021-06-10 05:06 | disposition home or self-care (01) ==
LOC: M.ERS 04:09
DX: M79.601 Pain in right arm (principal); E11.9 Type 2 diabetes mellitus without complications; J45.909 Unspecified asthma, uncomplicated; I10 Essential (primary) hypertension; M19.90 Unspecified osteoarthritis, unspecified site; Z79.82 Long term (current) use of aspirin; Z79.899 Other long term (current) drug therapy; Z88.0 Allergy status to penicillin; Z87.891 Personal history of nicotine dependence

== ENCOUNTER 2021-06-14 14:51 | Inpatient (IN) | payer MEDICARE, BC ==
[~2021-06-14] VITALS: Ht 182.9 cm; Wt 95.3 kg
[~2021-06-14 14:51] MED LIST changes: +HYDROCODONE-AP1 EA11 PO; +MEDROLDOSEPACK PO; +NEURONTIN 300M300 M2 PO; +PERCOCET 5-3251 EACH PO; +TORADOL 10 MG T10 MG PO
[2021-06-14 14:56] VITALS: BP 150/90
[2021-06-14] MEDS ORDERED: TUSSIN CF MAX118 ML PO (15:05)
[2021-06-14] MEDS ORDERED: METHYLPREDNISOL32 MG PO (15:05)
[2021-06-14 16:05] LABS: HEMATOCRIT 35.5 % (42.0-52.0); HEMOGLOBIN 11.6 gm/dL (14.0-18.0); MCH 26.1 pg (26.0-34.0); MCHC 32.8 g/dL (28.0-37.0); MCV 79.5 fL (80.0-100.0); MPV 7.4 fl. (7.2-11.1); NUCLEATED RBCS 0 /100WBC; PLATELET COUNT* 126 thou/uL (150-400); RBC 4.46 mil/uL (4.50-6.00); RDW-CV 18.5 % (10.5-14.5); WBC 12.6 thou/uL (4.0-11.0)
[2021-06-14 16:14] LABS: CREATININE 1.5 mg/dL (0.6-1.3); POTASSIUM 4.5 mmol/L (3.5-5.1)
[2021-06-14 16:25] LABS: ALBUMIN 2.4 g/dL (3.4-5.0); MAGNESIUM 1.7 mg/dL (1.8-2.4); TOTAL BILIRUBIN 0.4 mg/dL (<0.1-1.0); TOTAL PROTEIN 6.4 g/dL (6.4-8.2)
[2021-06-14 16:49] LABS: ABSOLUTE LYMPHOCYTES 1.5 thou/uL (0.8-5.3); ABSOLUTE MONOCYTES 0.3 thou/uL (0.0-1.2); ABSOLUTE NEUTROPHILS 10.8 thou/uL (1.6-8.1)
[2021-06-14 16:50] LABS: LARGE PLATELETS RARE; MICROCYTES 1+; PLATELET ESTIMATE DECREASED
[2021-06-14 22:00] VITALS: BP 127/61
[2021-06-14 23:02] VITALS: BP 127/61
[2021-06-14 23:51] VITALS: BP 114/50
--- NOTE | 2021-06-15 02:57 | NUR ---
ASSUMED CARE OF PT AT 2315. PT IS ALERT AND ORIENTED. VSS. PERRLA. PT IS VERY RESTLESS. PT IS UNABLE TO KEEP TELEMETRY ON AND KEEPS TAKING OFF HIS O2. PT IS IN A FIB ON THE TELEMETRY. PT IS RESTING COMFORTABLY IN BED. RESPIRATIONS ARE EVEN AND NONLABORED. WILL CONTINUE TO MONITOR PT.
[2021-06-15 04:00] VITALS: BP 160/68
[2021-06-15 08:00] VITALS: BP 137/78
[2021-06-15 08:40] LABS: ABSOLUTE LYMPHOCYTES 0.7 thou/uL (0.8-5.3); ABSOLUTE MONOCYTES 0.3 thou/uL (0.0-1.2); ABSOLUTE NEUTROPHILS 8.4 thou/uL (1.6-8.1); BASOPHILS 0.3 %; EOSINOPHILS 0.1 %; HEMATOCRIT 35.4 % (42.0-52.0); HEMOGLOBIN 11.3 gm/dL (14.0-18.0); LYMPHOCYTES 7.3 %; MCH 26.1 pg (26.0-34.0); MCHC 32.1 g/dL (28.0-37.0); MCV 81.3 fL (80.0-100.0); MONOCYTES 3.5 %; MPV 8.5 fl. (7.2-11.1); NUCLEATED RBCS 0 /100WBC; PLATELET COUNT* 107 thou/uL (150-400); POLYS 88.8 %; RBC 4.35 mil/uL (4.50-6.00); RDW-CV 19.3 % (10.5-14.5); WBC 9.4 thou/uL (4.0-11.0)
[2021-06-15 09:19] LABS: ALBUMIN 2.4 g/dL (3.4-5.0); CALCIUM 9.5 mg/dL (8.5-10.1); CREATININE 1.1 mg/dL (0.6-1.3); POTASSIUM 4.6 mmol/L (3.5-5.1); TOTAL BILIRUBIN 0.3 mg/dL (<0.1-1.0)
[2021-06-15 12:00] VITALS: BP 148/61
[2021-06-15 16:00] VITALS: BP 159/68
--- NOTE | 2021-06-15 16:34 | EKG ---
[place] [address] ELECTROCARDIOGRAM REPORT Name: DEMETRISGUERA NAYAK Room: [address] ADM IN .R.#: [id number] Admission: 06/14/21 Attend Phys: Didi Lou, Discharge: Date of : 44 Date of Service: 06/14/21 1456 Report #: [id number] THIS REPORT FOR: //name// [facility] ED Test Date: 2021-06-14 Test Time: 14:56:58 Pat Name: GUERA WILLSON Department: Room: [facility] Gender: M Worm Grower: LORRAINE : 1940 Requested By: Keith Le Order Number: [id number] MD: Rubens Gómez Measurements Intervals [place] Rate: 80 P: IN: QRS: 24 QRSD: 93 T: 22 QT: 375 QTc: 433 Interpretive Statements Atrial fibrillation early transition Borderline repolarization abnormality Compared to ECG 06/07/2021 10:45:19 Sinus rhythm no longer present Electronically Signed On 06-15-2021 16:34:33 TREATMENT SPECIALIST by Rubens Gómez [email or web address] <ELECTRONICALLY SIGNED> By: Rubens Gómez MD, FACC 06/15/21 1634 1456 1456 Rubens Gómez MD, FAC /EPI
[2021-06-15 19:27] LABS: INFLUENZA A ANTIGEN Negative (Negative); INFLUENZA B ANTIGEN Negative (Negative)
[2021-06-15 20:00] VITALS: BP 165/80
[2021-06-16] VITALS: BP 129/65
[2021-06-16 04:00] VITALS: BP 137/70
[2021-06-16 05:19] LABS: ABSOLUTE MONOCYTES 0.3 thou/uL (0.0-1.2); ABSOLUTE NEUTROPHILS 8.6 thou/uL (1.6-8.1); BASOPHILS 0.2 %; EOSINOPHILS 0.5 %; HEMATOCRIT 36.9 % (42.0-52.0); HEMOGLOBIN 12.3 gm/dL (14.0-18.0); LYMPHOCYTES 9.7 %; MCH 26.4 pg (26.0-34.0); MCHC 33.4 g/dL (28.0-37.0); MCV 78.9 fL (80.0-100.0); MPV 7.8 fl. (7.2-11.1); NUCLEATED RBCS 0 /100WBC; PLATELET COUNT* 148 thou/uL (150-400); POLYS 86.6 %; RBC 4.67 mil/uL (4.50-6.00); RDW-CV 19.2 % (10.5-14.5); WBC 9.9 thou/uL (4.0-11.0)
[2021-06-16 06:04] LABS: CALCIUM 10.4 mg/dL (8.5-10.1); CREATININE 0.8 mg/dL (0.6-1.3); POTASSIUM 4.1 mmol/L (3.5-5.1)
--- NOTE | 2021-06-16 06:29 | NUR ---
ASSUMED CARE OF PT AFTER REPORT AT 1930. PT A&OX4. VSS. PHYSICAL ASSESSMENT COMPLETED AND CHARTED. PT ON O2 AT 2LNC. PT TRACING AFIB/PVC ON TELE. PT UPADLIB TO RESTROOM. PT COMPLAINED OF HEADACHE & RIGHT ARM PAIN-MED GIVEN PER SEP. PT LASHELL TO SLEEP WELL ON BED. CALL LIGHT WITHIN REACH.
--- NOTE | 2021-06-16 10:34 | NUR ---
CM COMPLETED AN ASSESSMENT WITH PT WHO INIDCATED HE LIVES AT HOME WITH HIS . HE IS INDEPENDENT W/ADLS. PT HAS CPAP AND O2 AT HOME; 2-4L VIA [facility]. PT D/C FOR [facility] ON 05/23, PER ROS. PT INDICATED HE DOESNT BELIEVE HE WILL NEED HH SRVC AT [place].
[2021-06-16 13:56] VITALS: BP 137/72
--- NOTE | 2021-06-16 15:12 | NUR ---
Assumed care at 0730. Pt is alert and oirented. Assessment done. Pt had eventful day. Will continue to provide care for pt.
[2021-06-16 16:00] VITALS: BP 174/88
[2021-06-16 20:00] VITALS: BP 158/75
[2021-06-17] VITALS: BP 138/84
[2021-06-17 04:00] VITALS: BP 166/89
--- NOTE | 2021-06-17 05:22 | NUR ---
ASSUMED CARE OF PT AFTER REPORT AT 1930. PT A&OX4. VSS. PHYSICAL ASSESSMENT COMPLETED AND CHARTED. PT ON O2 AT 2L NC. PT TRACING AFIB/PVC ON TELE. PT UPADLIB TO RESTROOM. PT COMPLAINED OF HEADACHE-MED GIVEN PER SEP. CALL LIGHT WITHIN REACH.
[2021-06-17 05:24] LABS: HEMATOCRIT 38.9 % (42.0-52.0); HEMOGLOBIN 12.9 gm/dL (14.0-18.0); MCH 26.3 pg (26.0-34.0); MCHC 33.2 g/dL (28.0-37.0); MCV 79.1 fL (80.0-100.0); MPV 7.8 fl. (7.2-11.1); RBC 4.92 mil/uL (4.50-6.00); RDW-CV 18.8 % (10.5-14.5); WBC 7.8 thou/uL (4.0-11.0)
[2021-06-17 05:45] LABS: CALCIUM 10.1 mg/dL (8.5-10.1); CREATININE 0.7 mg/dL (0.6-1.3); POTASSIUM 3.9 mmol/L (3.5-5.1)
[2021-06-17 12:43] VITALS: BP 148/78
[2021-06-17] MEDS ORDERED: PREDNISONE 10 M10 MG PO (13:23)
[2021-06-17] MEDS ORDERED: LEVOFLOXACIN500 MG PO (13:23)
[2021-06-17] MEDS ORDERED: PROAIR HFA8.5 GM INH (13:23)
[2021-06-17 14:28] VITALS: BP 148/78
== END 2021-06-17 15:54 | disposition home or self-care (01) | DRG 177 ==
LOC: M.ERS 14:51 → M.ORTHSURG 17:45 → M.TBA-ER 17:45 → M.2W 17:45 → M.ORTHSURG 22:59 → M.2W 06-15 08:11
PROVIDERS: Emergency Medicine Emergency Medical Services; Internal Medicine; ADMIT Internal Medicine; ATTEND Internal Medicine
DX: J15.6 Pneumonia due to other Gram-negative bacteria (principal); J96.20 Acute and chronic respiratory failure, unspecified whether with hypoxia or hypercapnia; N17.9 Acute kidney failure, unspecified; J43.9 Emphysema, unspecified; E11.9 Type 2 diabetes mellitus without complications; I25.10 Atherosclerotic heart disease of native coronary artery without angina pectoris; Z88.0 Allergy status to penicillin; Z20.822 Contact with and (suspected) exposure to COVID-19

== ENCOUNTER → 2021-07-05 | Outpatient (CLI) | payer MEDICARE, BC ==
[~2021-07-05] MED LIST changes: +LEVOFLOXACIN500 MG PO; +METHYLPREDNISOL32 MG PO; +PROAIR HFA8.5 GM INH; +TUSSIN CF MAX118 ML PO
== END ==
LOC: M.MRI 07:59
PROVIDERS: ATTEND Orthopaedic Surgery
DX: M19.011 Primary osteoarthritis, right shoulder (principal); M75.101 Unspecified rotator cuff tear or rupture of right shoulder, not specified as traumatic; M24.111 Other articular cartilage disorders, right shoulder